=== PATIENT | male | born 1960 | race Caucasian/White ===

== ENCOUNTER → 2023-09-08 06:37 | Outpatient (REF) | payer OTHER, SELFPAY | LOC: RAD 06:37 | PROVIDERS: ATTENDING PHYSICIAN Specialist; FAMILY PHYSICIAN Internal Medicine | DX: N20.0 Calculus of kidney (principal) | CPT/HCPCS: 74176 ==

== ENCOUNTER → 2023-10-07 13:32 | Outpatient (REF) | payer OTHER, SELFPAY | LOC: RAD 13:32 | PROVIDERS: ATTENDING PHYSICIAN Specialist; FAMILY PHYSICIAN Internal Medicine | DX: N20.1 Calculus of ureter (principal) | CPT/HCPCS: 74018 ==

== ENCOUNTER 2023-10-20 06:11 | Day surgery (SDC) | payer OTHER, SELFPAY ==
[2023-10-09 07:45] VITALS: BMI 30.4
[2023-10-09 09:39] LABS: Hematocrit 46.8 % (39.0-52.0); Hemoglobin 16.2 g/dL (13.0-18.0); Mean Corp Hgb Conc. 34.6 g/dL (33.0-37.0); Mean Corpuscular Volume 89.7 fL (80.0-94.0); Mean Platelet Volume 10.5 fL (7.4-10.4); Platelet Count 166 10^3/uL (130-400); Red Blood Cell Count 5.22 10^6/uL (4.70-6.10); Red Cell Dist. Width 12.8 % (11.5-14.5); White Blood Cell Count 10.8 10^3/uL (4.8-10.8)
[2023-10-09 09:40] LABS: INR 1.04; PT 13.4 Sec (11.4-14.6)
[2023-10-09 09:41] LABS: APTT 38.7 Sec (23.4-35.0); Blood Urea Nitrogen 17 mg/dl (9-20); Calcium 9.9 mg/dl (8.4-10.2); Carbon Dioxide 26 mmol/L (22-30); Chloride 103 mmol/L (98-107); Estimated Creatinine Clearance 86 ml/min; Glucose 104 mg/dl (70-99); Sodium 138 mmol/L (135-145); eGFR > 60.00
[2023-10-09 09:47] LABS: Potassium 4.6 mmol/L (3.5-5.1)
--- NOTE | 2023-10-12 14:48 | PTCARENOTE ---
Abnormal EKG on 10/09/23. Dr. Bowie aware. No intervention needed.
[2023-10-20] VITALS (7 sets, daily range): BP systolic 115–147; BP diastolic 62–82; BMI 30.4
[2023-10-20] MEDS: NORMOSOL-R 1000 IV (06:37)
[2023-10-20] MEDS: Pyridium 200 MG PO (06:38)
[2023-10-20] MEDS: DILAUDID 0.25 MG IV (08:38)
[2023-10-24 11:11] LABS: Stone Analysis Mass 12 mg
== END 2023-10-20 09:30 | disposition home or self-care (01) ==
LOC: SDS 06:11
PROVIDERS: ATTENDING PHYSICIAN Specialist; FAMILY PHYSICIAN Internal Medicine
DX: N13.2 Hydronephrosis with renal and ureteral calculous obstruction (principal)
CPT/HCPCS: 52356; 36415; 74018; 76000; 80048; 82365; 85027; 85610; 85730; 93005; C1894; C2617

== ENCOUNTER → 2024-10-05 13:40 | Outpatient (REF) | payer MEDICARE, OTHER, SELFPAY | LOC: HWRAD 13:40 | PROVIDERS: ATTENDING PHYSICIAN Nurse Practitioner | DX: Z87.891 Personal history of nicotine dependence (principal) | CPT/HCPCS: 71271 ==

== ENCOUNTER → 2024-11-21 08:23 | Outpatient (REF) | payer MEDICARE, OTHER, SELFPAY | LOC: HWRAD 08:23 | PROVIDERS: ATTENDING PHYSICIAN Internal Medicine Critical Care Medicine; FAMILY PHYSICIAN Internal Medicine | DX: R91.1 Solitary pulmonary nodule (principal) | CPT/HCPCS: 71250 ==

== ENCOUNTER 2024-11-25 06:08 | Day surgery (SDC) | payer MEDICARE, OTHER, SELFPAY ==
[2024-11-21 13:53] VITALS: BMI 25.6
[2024-11-25 08:45] VITALS: BMI 29.2
[2024-11-25 08:48] VITALS: BP 136/80; BMI 29.2
[2024-11-25 11:20] VITALS: BP 116/48; BP 136/80
[2024-11-25 11:30] VITALS: BP 123/68
[2024-11-25 11:50] VITALS: BP 118/69
[2024-11-25 12:20] VITALS: BP 120/60
== END 2024-11-25 12:20 | disposition home or self-care (01) ==
LOC: GI 06:08
PROVIDERS: ATTENDING PHYSICIAN Internal Medicine Critical Care Medicine
DX: R91.1 Solitary pulmonary nodule (principal); R59.1 Generalized enlarged lymph nodes; C77.1 Secondary and unspecified malignant neoplasm of intrathoracic lymph nodes
CPT/HCPCS: 31629; 31624; 31627; 31654; 88172; 88173; 88305; 71045; 76000; 81459; 88112; 88177; 88342; 94640; C1887

== ENCOUNTER → 2024-12-08 11:53 | Outpatient (REF) | payer MEDICARE, OTHER, SELFPAY | LOC: MRI 11:53 | PROVIDERS: ATTENDING PHYSICIAN Internal Medicine Critical Care Medicine; FAMILY PHYSICIAN Internal Medicine | DX: C34.11 Malignant neoplasm of upper lobe, right bronchus or lung (principal) | CPT/HCPCS: 70553; A9575 ==

== ENCOUNTER → 2024-12-14 16:15 | Outpatient (REF) | payer MEDICARE, OTHER, SELFPAY ==
[2024-12-14 10:27] LABS: % Basophils 0.3 % (0-2); % Eosinophils 0.9 % (0-6); % Immature Granulocytes 0.1 % (0-0.5); % Lymphocytes 18.5 % (20.5-51.1); % Neutrophils 74.2 % (42.2-75.2); Absolute Eosinophils 0.1 10^3/uL (0-0.7); Absolute Lymphocytes 1.7 10^3/uL (1.2-3.4); Absolute Monocytes 0.5 10^3/uL (0.1-0.6); Absolute Neutrophils 6.6 10^3/uL (1.4-6.5); Hematocrit 44.8 % (39.0-52.0); Hemoglobin 15.6 g/dL (13.0-18.0); Mean Corp Hgb Conc. 34.8 g/dL (33.0-37.0); Mean Corpuscular Hgb 30.5 pg (27.0-31.0); Mean Corpuscular Volume 87.7 fL (80.0-94.0); Mean Platelet Volume 10.1 fL (7.4-10.4); Platelet Count 163 10^3/uL (130-400); Red Blood Cell Count 5.11 10^6/uL (4.70-6.10); Red Cell Dist. Width 12.5 % (11.5-14.5); White Blood Cell Count 8.9 10^3/uL (4.8-10.8)
[2024-12-14 11:16] LABS: ALT (SGPT) 21 U/L (0-50); AST (SGOT) 22 U/L (17-59); Albumin 4.3 g/dl (3.5-5.0); Alkaline Phosphatase 57 U/L (38-126); Blood Urea Nitrogen 15 mg/dl (9-20); Calcium 9.1 mg/dl (8.4-10.2); Carbon Dioxide 25 mmol/L (22-30); Chloride 111 mmol/L (98-107); Glucose 123 mg/dl (70-99); Potassium 4.3 mmol/L (3.5-5.1); Sodium 141 mmol/L (135-145); Total Bilirubin 0.5 mg/dl (0.2-1.3); Total Protein 6.8 g/dl (6.3-8.2); eGFR > 60.00
== END ==
LOC: OIDL 16:15
PROVIDERS: ATTENDING PHYSICIAN Internal Medicine Hematology & Oncology
DX: C34.91 Malignant neoplasm of unspecified part of right bronchus or lung (principal)
CPT/HCPCS: 80053; 85025

== ENCOUNTER → 2024-12-19 10:06 | Outpatient (REF) | payer MEDICARE, OTHER, SELFPAY ==
[2024-12-19 10:46] VITALS: BP 145/89; BP_SYST 68; BMI 29.4
[2024-12-19] MEDS: ANCEF 10 IV (11:00)
[2024-12-19 12:10] VITALS: BP 123/84
[2024-12-19 12:15] VITALS: BP 140/69
== END ==
LOC: RADI 10:06
PROVIDERS: ATTENDING PHYSICIAN Internal Medicine Hematology & Oncology; FAMILY PHYSICIAN Internal Medicine
DX: C34.91 Malignant neoplasm of unspecified part of right bronchus or lung (principal)
CPT/HCPCS: 36561; 76937; 77001; 99152; C1788

== ENCOUNTER → 2025-01-09 09:03 | Outpatient (REF) | payer MEDICARE, OTHER, SELFPAY ==
[2025-01-09 09:58] LABS: Hematocrit 42.2 % (39.0-52.0); Hemoglobin 14.3 g/dL (13.0-18.0); Mean Corp Hgb Conc. 33.9 g/dL (33.0-37.0); Mean Corpuscular Volume 90.8 fL (80.0-94.0); Nucleated Red Blood Cells % 0 % (-); Platelet Count 181 10^3/uL (130-400); Red Cell Dist. Width 13.8 % (11.5-14.5)
[2025-01-09 11:24] LABS: ALT (SGPT) 15 U/L (0-50); AST (SGOT) 16 U/L (17-59); Albumin 4.3 g/dl (3.5-5.0); Alkaline Phosphatase 87 U/L (38-126); Blood Urea Nitrogen 12 mg/dl (9-20); Calcium 9.5 mg/dl (8.4-10.2); Carbon Dioxide 28 mmol/L (22-30); Chloride 108 mmol/L (98-107); Glucose 86 mg/dl (70-99); Potassium 4.9 mmol/L (3.5-5.1); Sodium 141 mmol/L (135-145); Total Protein 6.9 g/dl (6.3-8.2); eGFR > 60.00
[2025-01-09 12:37] LABS: TSH 1.79 uIU/ml (0.47-4.68)
== END ==
LOC: REG 09:03
PROVIDERS: ATTENDING PHYSICIAN Internal Medicine Hematology & Oncology; FAMILY PHYSICIAN Internal Medicine
DX: C34.91 Malignant neoplasm of unspecified part of right bronchus or lung (principal); Z45.2 Encounter for adjustment and management of vascular access device; Z79.899 Other long term (current) drug therapy
CPT/HCPCS: 36415; 80053; 84443; 85025

== ENCOUNTER → 2025-01-30 09:42 | Outpatient (REF) | payer MEDICARE, OTHER, SELFPAY ==
[2025-01-30 10:49] LABS: Hematocrit 41.0 % (39.0-52.0); Hemoglobin 14.1 g/dL (13.0-18.0); Mean Corp Hgb Conc. 34.4 g/dL (33.0-37.0); Mean Corpuscular Volume 92.1 fL (80.0-94.0); Nucleated Red Blood Cells % 0 % (-); Platelet Count 133 10^3/uL (130-400); Red Cell Dist. Width 15.3 % (11.5-14.5)
[2025-01-30 11:44] LABS: ALT (SGPT) 29 U/L (0-50); AST (SGOT) 24 U/L (17-59); Albumin 4.4 g/dl (3.5-5.0); Alkaline Phosphatase 82 U/L (38-126); Blood Urea Nitrogen 14 mg/dl (9-20); Calcium 9.0 mg/dl (8.4-10.2); Carbon Dioxide 29 mmol/L (22-30); Chloride 106 mmol/L (98-107); Glucose 70 mg/dl (70-99); Potassium 4.5 mmol/L (3.5-5.1); Sodium 141 mmol/L (135-145); Total Protein 6.7 g/dl (6.3-8.2); eGFR > 60.00
[2025-01-30 11:48] LABS: TSH 2.16 uIU/ml (0.47-4.68)
== END ==
LOC: REG 09:42
PROVIDERS: ATTENDING PHYSICIAN Internal Medicine Hematology & Oncology; FAMILY PHYSICIAN Internal Medicine
DX: C34.91 Malignant neoplasm of unspecified part of right bronchus or lung (principal); Z45.2 Encounter for adjustment and management of vascular access device; Z79.899 Other long term (current) drug therapy
CPT/HCPCS: 36415; 80053; 84443; 85025

== ENCOUNTER → 2025-02-20 10:00 | Outpatient (REF) | payer MEDICARE, OTHER, SELFPAY ==
[2025-02-20 10:53] LABS: Hematocrit 40.4 % (39.0-52.0); Hemoglobin 13.8 g/dL (13.0-18.0); Mean Corp Hgb Conc. 34.2 g/dL (33.0-37.0); Mean Corpuscular Volume 94.4 fL (80.0-94.0); Nucleated Red Blood Cells % 0 % (-); Platelet Count 130 10^3/uL (130-400); Red Cell Dist. Width 17.2 % (11.5-14.5)
[2025-02-20 11:15] LABS: ALT (SGPT) 22 U/L (0-50); AST (SGOT) 20 U/L (17-59); Albumin 4.4 g/dl (3.5-5.0); Alkaline Phosphatase 82 U/L (38-126); Blood Urea Nitrogen 14 mg/dl (9-20); Calcium 9.4 mg/dl (8.4-10.2); Carbon Dioxide 26 mmol/L (22-30); Chloride 108 mmol/L (98-107); Glucose 88 mg/dl (70-99); Potassium 4.7 mmol/L (3.5-5.1); Sodium 140 mmol/L (135-145); Total Protein 7.0 g/dl (6.3-8.2); eGFR > 60.00
[2025-02-20 11:45] LABS: TSH 1.62 uIU/ml (0.47-4.68)
== END ==
LOC: REG 10:00
PROVIDERS: ATTENDING PHYSICIAN Internal Medicine Hematology & Oncology; FAMILY PHYSICIAN Internal Medicine
DX: C34.91 Malignant neoplasm of unspecified part of right bronchus or lung (principal); Z45.2 Encounter for adjustment and management of vascular access device; Z79.899 Other long term (current) drug therapy
CPT/HCPCS: 36415; 80053; 84443; 85025

== ENCOUNTER 2025-03-08 07:26 | Inpatient (IN) | payer MEDICARE, OTHER, SELFPAY ==
[2025-02-27 13:50] VITALS: BMI 29.9
--- NOTE | 2025-02-27 14:06 | CM ---
spoke to pt and in PAT's, we discussed pre-op Lung surgery including driving and lifting restrictions. he is prev indep, lives with his in a2 story home with 4 steps to enter. he has the lung surgery book, soap and in structions. he is
agreeable to a f/u visit form the ct transitional care nurse after dc. plan is for RUL lobectomy 03/08. cm role explained and all questions answered.
[2025-02-27 14:10] LABS: INR 1.04; PT 13.9 Sec (11.4-14.6)
[2025-02-27 14:35] LABS: Hematocrit 39.3 % (39.0-52.0); Hemoglobin 13.6 g/dL (13.0-18.0); Mean Corp Hgb Conc. 34.6 g/dL (33.0-37.0); Mean Corpuscular Volume 93.1 fL (80.0-94.0); Nucleated Red Blood Cells % 0 % (-); Platelet Count 104 10^3/uL (130-400); Red Cell Dist. Width 16.6 % (11.5-14.5)
[2025-02-27 14:39] LABS: Urine Character Clear (Clear)
[2025-02-27 14:55] LABS: Urine Squamous Cell 0-2 /LPF (Few)
[2025-02-27 14:58] LABS: Urine Red Blood Cell 0-2 /HPF (0-2)
[2025-02-27 15:06] LABS: ALT (SGPT) 20 U/L (0-50); AST (SGOT) 23 U/L (17-59); Albumin 4.5 g/dl (3.5-5.0); Alkaline Phosphatase 133 U/L (38-126); Blood Urea Nitrogen 20 mg/dl (9-20); Calcium 9.0 mg/dl (8.4-10.2); Carbon Dioxide 25 mmol/L (22-30); Chloride 105 mmol/L (98-107); Estimated Creatinine Clearance 103 ml/min; Glucose 76 mg/dl (70-99); Potassium 4.4 mmol/L (3.5-5.1); Sodium 137 mmol/L (135-145); Total Protein 6.8 g/dl (6.3-8.2); eGFR > 60.00
[2025-02-28 08:41] LABS: Glycohemoglobin (HgbA1c) 5.5 % (4.0-5.6)
[2025-03-08] VITALS (11 sets, daily range): BP systolic 97–152; BP diastolic 60–97
[2025-03-08] MEDS: BACTROBAN 2% OINTMENT 1 APPLIC NASAL (07:54)
--- NOTE | 2025-03-08 08:27 | W.CVOR.SURPR ---
CVOR Surgeon Immed Pre Op
-
I have examined this patient prior to performance of the scheduled procedure.
The patient's condition is unchanged from the time of the dictated/written History and
Physical and the patient is able to undergo the scheduled procedure.
RATS RUL + LN + Port removal
[2025-03-08] MEDS: XANAX 0.25 MG PO (08:30)
--- NOTE | 2025-03-08 08:36 | PTCARENOTE ---
Pt admitted into 2266, pt AAOx3 and ambulating in room; pt confirmed 2 showers at home; pt clipped and prepped and CHG wipes provided; pt confirmed all medications; all questions answered; Dr Aguirre into see pt and sign operative sites; pt resting
comfortably awaiting CVOR.
--- NOTE | 2025-03-08 11:34 | CM ---
Chart reviewed. Patient is in the OR today. Patient is independent of ADLS, lives with his in a 2 STH, 4 DELPHINE, 0 DME. Plan is for the patient to return home with CT Transitional RN.
--- NOTE | 2025-03-08 13:00 | PTCARENOTE ---
Pt transported to [facility] via bed.
[2025-03-08 13:03] LABS: Urine Character Clear (Clear)
--- NOTE | 2025-03-08 13:26 | CON.INTV ---
Consultation
Consultation Request
Date/Time Consultation Requested: 03/08/2025-3 PM
Date/Time Consultation Performed: 03/08/2025-3:30 PM
Requesting Provider: Dr. Aguirre
Performing Provider: Dr. Miller
Reason for Consultation: Postoperative critical care management
Medical History
-
Chief Complaint: Lung cancer
History of Present Illness:
65-year-old [id number]-yjes smoker with a history of insomnia and BPH found to have stage I lung cancer and underwent resection-biological scientist consulted for postoperative critical care management 03/08/2025. Patient was extubated postoperatively and is now
sitting in the chair. He denies any shortness of breath, chest pain, chest tightness, wheezing, chest congestion, productive cough and has some nicotine withdrawal symptoms. Does not complain of any abdominal pain, nausea, or focal weakness.
Past Medical History
Past Medical History: None (Former opszdu-28-wuut-year. Insomnia. BPH. TURP. Left ureteroscopic stone removal 2023. Lung cancer stage I/bronchoscopy 11/2024)
Social History
Tobacco: Smoker ([id number])
Alcohol: None
Drug: None
Personal:
Living: With Family
Occupational Exposures: No known asbestos exposure
Environmental Exposures: No known tuberculosis exposure
Family History
Family History: Reviewed & Not Pertinent (Father-CAD. Mother-lung cancer. Maternal grandfather-COPD.)
Allergies / Home Medications
Allergies
Allergy/AdvReac Type Severity Reaction Status Date / Time
No Known Allergies Allergy Verified 02/22/25 13:23
Home Medications
�Medication �Instructions �Recorded �Confirmed �Last Taken �Type
ascorbic acid (vitamin C) 500 mg 500 mg PO NOON Supplement 10/14/23 03/08/25 02/28/25 08:00 History
tablet (Vitamin C)
clonazepam 1 mg tablet 1 mg PO HS Mental Health/Anxiety 10/14/23 03/08/25 03/07/25 21:00 History
tamsulosin 0.4 mg capsule 0.4 mg PO DAILY Urinary Issue 10/14/23 03/08/25 03/07/25 08:00 History
trazodone 100 mg tablet 100 mg PO HS Sleep 10/14/23 02/22/25 11/24/24 22:15 History
acetaminophen 325 mg tablet 650 mg PO Q4H PRN pain 11/22/24 12/15/24 11/22/24 18:00 History
(Tylenol)
folic acid 1 mg tablet 1 mg PO DAILY Supplement 12/15/24 03/08/25 03/07/25 08:00 History
vcrewcpm-uw-dzrub 300 mcg-K 60 1 tab PO NOON Supplement 12/15/24 03/08/25 02/28/25 08:00 History
mcg-lycop 600 mcg-lutein 300 mcg
tablet (Centrum Silver Men)
Medical Marijuana 1 gum PO PRN PRN nausea 02/22/25 02/22/25 Unknown History
Review of Systems
-
Unable to Obtain full review of systems at this time due to: Other ( per HPI)
Vitals / Labs / Diagnostic Testing
Vital Signs
Temp Pulse Resp BP Pulse Ox
98.4 F 89 20 152/95 97
03/08/25 07:28 03/08/25 07:28 03/08/25 07:28 03/08/25 07:26 03/08/25 07:28
Lab Data
02/27/25 11:56
02/27/25 11:56
Diagnostic Testing:
Physical Exam
-
Exam:
Well-nourished and well-developed in no apparent distress
HEENT-atraumatic, normocephalic
Neck-supple, no JVD, no bruit
Heart-regular rate and rhythm-no murmurs, rubs or gallops
Chest-clear to auscultation, no wheezes, crackles
Back-no tenderness
Abdomen-soft, nontender, nondistended, no hepatosplenomegaly
Extremities-no cyanosis, clubbing, edema and good peripheral pulses
Integument-intact, no rashes, lesions or ecchymosis
Neurology-alert and oriented, nonfocal motor and sensory exam
Assessment
-
65-year-old 85-tgsu-ynlb smoker with a history of insomnia and BPH found to have stage I lung cancer and underwent resection-biological scientist consulted for postoperative critical care management 03/08/2025.
Lung cancer-stage III-right upper lobe adenocarcinoma with preoperative 4R lymph node positive
Status post preoperative chemoimmunotherapy-PET scan 02/2025 with positive response and no new additional lesions
Status post
Mild leukocytosis
Mild thrombocytopenia
Conditions present prior to admission:
Former ahjliz-67-dhmy-year.
COPD
Insomnia.
BPH.
TURP.
History of right sided pneumothorax-2007 after a fall with rib fractures
Left ureteroscopic stone removal 2023.
Lung cancer-adenocarcinoma right upper lobe with mets to local regional lymph nodes, negative MRI brain, status post preoperative chemo immunotherapy-11/2024
Family history lung cancer
Plan
Preoperative history and evaluation reviewed and summarized below including multiple radiographs, CTs of the chest, PET scans, pulmonary function tests and bronchoscopy results
Doing well postoperatively
Supplemental oxygen as needed
Nebulizers as needed
Aspiration precautions
Incentive spirometry
Monitor chest tube output-currently no airleak
Follow radiographs
Follow leukocytosis
Thoracic surgery following-correspondence reviewed
Ongoing smoking cessation counseling
Nicotine gum
DVT prophylaxis
Nutrition
Early mobilization
The patient is doing well and if chest tubes removed he may be discharged in the next 24 hours
The patient was last seen by Dr. Dimas 12/08/2024 and has an appointment 04/10/2025 at 9:45 AM
Critical care statement: A total of 55 minutes of critical care time was provided for this patient today. This includes management of unstable vital signs, evaluation of the patient at bedside, reviewing the patient�s pertinent medical records
including radiographs, microbiology, laboratory evaluations, and��discussion with primary team, consultants, pharmacy, nutrition, physical therapy, case management, charge nurse, critical care nursing, and respiratory therapy.
Diagnostic data:
CT chest 04/11/2015:Reviewed demonstrated stability of the 7 mm subpleural spiculated density on the posterior medial aspect of the left lung apex.� Stable 3 mm lingula pulmonary nodule and 2 mm nodule around the right major fissure.� No other new
abnormalities.
CT chest 06/09/2018:�demonstrated mild paraseptal and centrilobular emphysema. Upper lobe predominant. Several small pulmonary nodules-the largest area on the right apical mewsps-wamgikx-prbvn 7 mm lung nodule versus scarring. There are 3 mm a truck
pulmonary lymph nodes along the right major fissure. Questionable 5 mm nodule. 3 mm lingular nodule.
CT chest 10/15/22: multiple nodules throughout both lung wang ranging between 2 and 5 mm. Stable compared to 2021 per report
LDCT 10/05/24: 4 mm lingular nodule, 4 mm left upper lobe nodule. Right apical nodule 9 mm increased image #24, when compared to 10/15/22 per my review. No adenopathy. Mild emphysemaABD CT 09/08/23: nephrolithiasis
CT chest 11/21/24: 11 mm right upper lobe nodule, 4 mm lingular nodule, 1.5 cm right paratracheal adenopathy
PET scan 11/16/24: 9 mm right upper lobe nodule delayed SUV 4.7, right paratracheal lymph node 1.1 cm, SUV 14.1. per my review, there may also be some right hilar PET avidity.� No other extra pulmonary avidity noted
PET scan 03/02/2025 interval decrease in size of FDG avid right upper lobe pulmonary nodule and pretracheal lymph node consistent with positive response to therapy, no new suspicious FDG avid lesions in the body
Pulmonary function testing 07/13/2018:�showed FEV1 is/FVC 71%, FEV1 3.29 L-82%, FVC 4.63 L-88%. TLC 6.56 L-85%, RV 1.93 L-77%, DLCO 26.56-83%. Normal testing.
PFT 11/18/24: FVC 4.30/86%, FEV1 2.88/77%, ratio 67.� TLC 6.64/87%, DLCO 22.78/76%.� Mild obstruction with mild gas exchange defect
Bronchoscopy 11/25/24: right para-tracheal lymph node positive for cancer. right upper lobe lavage, negative for malignancy.� Lymph node station 4R, metastatic adenocarcinoma, moderate to poorly differentiated.� Station 11L negative
Data Reviewed
-
PFT: Report reviewed by me
EKG: Report reviewed by me
Radiology: Image personally visualized and interpreted and Report reviewed by me
CT Scan: Image personally visualized and interpreted and Report reviewed by me
MRI: Report reviewed by me
Medical Tests (Nuc Med, Echo etc): Report reviewed by me
Labs: Labs reviewed by me
Old Records: Reviewed
Critical Care Time (in minutes): 55
[2025-03-08 13:32] LABS: Urine Red Blood Cell 0-2 /HPF (0-2); Urine Squamous Cell 0-2 /LPF (Few)
--- NOTE | 2025-03-08 16:49 | W.PN.CT.SURG ---
CT Surgery Operative Note
-
THORACIC SURGERY OPERATIVE REPORT
Preoperative Diagnosis: Right upper lobe adenocarcinoma status post neoadjuvant chemoimmunotherapy for metastasis to station 4R lymph node
Postoperative Diagnosis: Same
Procedure(s) Performed:
1. Robotic assisted thoracic surgery [R ATS]
2. Intercostal nerve block interspaces 5, 6, 7, 8
3. Formal right upper lobectomy
4. Radical lymph node dissection
5. Port cath removal
Date of Surgery: 03/08/25
Comorbidities:
1. Adenocarcinoma of the right upper lobe with metastasis to station 4R lymph node
2. Status post neoadjuvant chemo immunotherapy
3. Tobacco abuse, active
4. Obese
5. Emphysema of bilateral lung wang and blebs
Attending Surgeon: Art Aguirre MD, MS
Assistants: Kimmie Urbina MD (performed portions of the RUL resection and performed the port-cath removal), Marian Sarabia PA-C (present and necessary to executive staff assistant, exchanging robotic instruments, retraction, suction, exposure, suture management, and
wound closure under my direction)
Anesthesiology: Jerzy Callejas MD and Melanie Sepulveda CRNA
Scrub and Circulating RNs: Ferny Viera, RN, Angel Rodriguez RN
Anesthesia: Dual Lumen GETA
EBL: 150 cc
Products: None
Indication(s) for Procedures: This is a 64-year-old male who had a low-dose CT scan screening for lung cancer and was found to have a right upper lobe nodule that was biopsied and came back positive for adenocarcinoma. EBUS evaluation also found a
abnormal appearing station 4R lymph node that came back positive for metastatic disease. He underwent a course of neoadjuvant chemoimmunotherapy and subsequent PET/CT demonstrated a good response. He is then referred for surgical resection and
staging.
Findings: There were no obvious intrathoracic lesions concerning for metachronous disease. He had evidence of significant smoking staining of all 3 lobes. There is evidence of blebs throughout his apical right upper lobe and other posterior
segments of his lung. He had a well-defined fissure between the right upper and right lower lobes but no distinct fissure between his right upper and right middle lobe. The lesion was palpable and visible at the apical posterior segment of his
right upper lobe. Once the hilum was dissected thoroughly and the fissure was developed along the pulmonary artery, the lateral as well as posterior ascending and truncal branches of the right upper lobe were taken using a white load stapler. The
vein to the right upper lobe was also divided. The fissure between the right upper and middle lobes was developed using multiple green load fire staplers. This left just his bronchus which was quite thick. We initially attempted to transect this
with a green load stapler but it was too thick. A black load stapler was used x 2 after verifying unobstructed inflation of the right middle and right lower lobes. At the conclusion of the case he had no significant air leak and no loss of tidal
volumes. We observed both his right middle and lower lobe expand with inflation at the inclusion of the case. Once this was complete the patient was flipped over and the anterior portion of his chest was prepped in a sterile fashion. This portion
the procedure was performed under local analgesia while he was still intubated, small 2 cm incision was made along the previous scar line and using blunt dissection the previous port was removed and pulled observing for any bleeding. The pocket was
fulgurated using electrocautery and the tissue was closed in layers per usual
Specimen(s):
Station 9, x 1 nodes
Station 8, x 2 nodes
Station 10, x 2 nodes
Station 11, x 2 nodes
Station 2/4, x 1 nodes
Right upper lobe
Description of Procedure: The patient was taken to the operating room. Induction via general anesthesia with endotracheal intubation was performed and peripheral venous access and arterial monitoring were inserted. Their identity and procedure to be
performed were verified and they were positioned with the right side up on the operating table. The patient was then prepped and draped in a sterile fashion. A preoperative time-out was performed with all members of the team present. A Veress
needle was used to insufflate the chest after isolating the lung. An 8 mm port was placed in the midaxillary line at approximately the eighth intercostal space and confirmed to be intrathoracic without significant pulmonary injury. The chest was
surveyed for any evidence of metastatic disease. Patient tolerate insufflation without complication. 2 additional 12 mm trocars were placed on either side under camera guidance and a third 8 mm trocar was placed along the back. A 12 mm technical support assistant
port was placed in the 11th intercostal space above the insertion of the diaphragm. An intercostal nerve block was performed at intercostal spaces 5 through 8.
The thoracic cavity was inspected for evidence of metastatic disease. None was observed. We started with mobilization of the inferior pulmonary ligament. We worked our way clockwise dissecting out the hilum and harvest any lymph nodes identified.
He had a poorly developed fissure between the right upper and right middle lobes. The vein leading to the right upper lobe was then divided using a white load stapler. This required extensive dissection and a pseudo fissure was developed using
multiple loads of green staple fires. This eventually opened up the hilum and expose the posterior sending and trunk branches of the pulmonary artery leading to the right upper lobe. These were divided using white load staplers. At this point the
only remaining structure was the bronchus to the right upper lobe which was quite long and also thick. We clamped this and performed a test inflation which demonstrated unobstructed flow to the remaining right lower right middle lobes. We
initially tried to fire with a green load but that was too thick and so we opted to switch out to multiple black loads. The specimen was displaced toward the apex while a chest tube was inserted and placed laterally towards the apex. A bubble test
was performed to identify any air leaks. CoSeal was used to reinforce the staple lines and hilum. The right upper lobe was then placed into a specimen bag and extracted from the chest cavity. After confirming hemostasis, the lung was fully
inflated and all ports were removed. Incisions were closed in 3 layers including the fascia, dermal, and epidermis. Additional local anesthesia was injected into all incision sites. The skin wound was cleansed and sealed with Dermabond glue. At
this point the patient was then repositioned into a supine position. The chest area around the port site was then prepped in the usual fashion. Once draping was completed, a small incision was made over top of the port site and the port was
bluntly removed and observe for any bleeding there. Fulguration of the wound bed was then performed and the wound was closed in layers per usual.
All instrument, sponge, and needle counts were confirmed to be correct x 2 at the end of the operation. The patient was transferred to the cardiac intensive care unit extubated in critical but stable condition.
I, Dr. Art Aguirre, was present, scrubbed for, and performed all critical elements of this procedure.
Art Aguirre MD, MS
Cardiothoracic Surgeon
[facility]
This operative dictation was created using the Jugo dictation system. Please excuse any grammatical, typographical, or 'sound alike' errors
[2025-03-08] MEDS: DILAUDID 0.5 MG IV ×3 (17:12→17:43)
[2025-03-08] MEDS: TORADOL 15 MG IV (18:11)
--- NOTE | 2025-03-08 18:35 | PTCARENOTE ---
Received pt from CVOR; CT x1 to water seal; NSR on monitor and VSS: A-line removed; pt resting comfortably in bed.
[2025-03-08] MEDS: SENOKOT PO (18:37)
[2025-03-08] MEDS: MIRALAX PO (18:37)
[2025-03-08] MEDS: ROXICODONE 5 MG PO (18:41)
[2025-03-08] MEDS: HEPARIN 5000 UNITS SC (18:41)
[2025-03-08] MEDS: NEURONTIN 100 MG PO (18:41)
[2025-03-08] MEDS: ANCEF 10 IV ×2 (18:45)
[2025-03-08] MEDS: FLEXERIL 5 MG PO (19:53)
[2025-03-08] MEDS: SENOKOT 8.6 MG PO (19:53)
--- NOTE | 2025-03-08 20:15 | PTCARENOTE ---
Assumed care of pt from dayshift RN. Walking rounds completed. Pt is AAOx3. [place]. SR on the tele monitor. HR 70s. BP stable. Palpable pulses throughout. Pt on 2 L NC. POX 97%. Pt s/p RATS procedure - right upper lobectomy, radical lymph node
dissection, and right upper chest port cath removal. Lung sounds diminished in B/L base. Right upper lobe absent. Pt w/ IS and acapella at the bedside. Deep breathing encouraged. Right pleural CTx1 to water seal. Tidaling present. Intermittent +1
airleak w/ coughing. Abdomen nontender. +BS x4. Pt OOB w/ assist x1 to void in the bathroom. Chemo precautions taken. Pt repositioned back into bed. PIV x2 intact. See MAR for pain medication administration. See worklist for full nursing assessment
and interventions. Call bragg within reach.
[2025-03-08] MEDS: KLONOPIN 1 MG PO (21:45)
[2025-03-08] MEDS: ANCEF 5 IV (21:45)
[2025-03-08] MEDS: TYLENOL 1000 MG PO (21:45)
[2025-03-08] MEDS: DESYREL 100 MG PO (21:45)
[2025-03-08] MEDS: NEURONTIN PO (21:46)
[2025-03-09] VITALS (7 sets, daily range): BP systolic 115–141; BP diastolic 64–96
[2025-03-09] MEDS: HEPARIN 5000 UNITS SC ×4 (00:19→23:17)
[2025-03-09] MEDS: TORADOL 15 MG IV ×3 (00:40→21:38)
--- NOTE | 2025-03-09 00:47 | PTCARENOTE ---
Pt reassessed. Pt remains SR on the tele monitor. HR 70s. BP stable. Pt on RA. POX 94-97%. Right CTx1 intact and to water seal. Tidaling present. No air-leak. All surgical sites stable. Pt OOB w/ assist x1 to void. Pt resting in bed at this time.
See MAR for pain medication administration. Call bragg within reach.
[2025-03-09] MEDS: FLEXERIL 5 MG PO (04:38)
--- NOTE | 2025-03-09 04:42 | PTCARENOTE ---
Pt reassessed. VSS. Pt on RA. Right lateral CT maintained to water seal. +1 intermittent air leak when pt coughs. PA aware. Pt assisted OOB to void then repositioned in bed. See MAR for pain medication administration. Labs drawn and sent. Call bragg
within reach.
[2025-03-09 04:53] LABS: Hematocrit 34.5 % (39.0-52.0); Hemoglobin 11.8 g/dL (13.0-18.0); Mean Corp Hgb Conc. 34.2 g/dL (33.0-37.0); Mean Corpuscular Volume 95.0 fL (80.0-94.0); Platelet Count 101 10^3/uL (130-400); Red Cell Dist. Width 17.2 % (11.5-14.5)
[2025-03-09 05:04] LABS: Blood Urea Nitrogen 14 mg/dl (9-20); Calcium 8.5 mg/dl (8.4-10.2); Carbon Dioxide 28 mmol/L (22-30); Chloride 105 mmol/L (98-107); Estimated Creatinine Clearance 82 ml/min; Glucose 145 mg/dl (70-99); Magnesium 2.0 mg/dl (1.6-2.3); Potassium 5.0 mmol/L (3.5-5.1); Sodium 137 mmol/L (135-145); eGFR > 60.00
[2025-03-09] MEDS: TYLENOL 1000 MG PO ×2 (05:32→22:03)
[2025-03-09] MEDS: ANCEF 5 IV ×2 (05:32→13:53)
--- NOTE | 2025-03-09 06:03 | W.PN.CT ---
Addendum entered and electronically signed by SHELBI Rivera 03/09/25 14:46:
CDI QUERY RESPONSE
-Acute blood loss anemia-expected due to surgery
Original Note:
Today's Communication / Plan
-
-pod #1
-no issues overnight, pOx 94-97% on RA. Ambulated to the bathroom, voided without issues
-R CT on water seal. +1 intermittent air leak noted with talking or cough. CT output 125/200 in 12/24 hrs
-follow CXR
-encourage IS, OOB, ambulate
Assessment / Plan
-
- s/p Robotic assisted thoracic surgery [RATS]; Formal right upper lobectomy; Port-cath removal; Radical lymph node dissection by Dr. Aguirre on 03/08/25, pod #1
- There were no obvious intrathoracic lesions concerning for metachronous disease. He had evidence of significant smoking staining of all 3 lobes. There is evidence of blebs throughout his apical right upper lobe and other posterior segments of
his lung.
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
- Tobacco abuse, active
- Class 1 obesity, BMI 30
- Emphysema of bilateral lung wang and blebs
Discussed patient care with: Nursing and Care Team
Subjective
-
Date of Service: March 09, 2025
Objective Data
-
PT 13.9 Sec (11.4-14.6) 02/27/25 11:56
INR 1.04 02/27/25 11:56
Vital Signs
Vital Signs
Temp Pulse Resp BP Pulse Ox
98 F 64 18 115/70 93
03/09/25 00:00 03/09/25 02:00 03/09/25 00:00 03/09/25 00:00 03/09/25 02:00
CT Intake/Output/Weight
03/08/25 03/08/25 03/09/25
06:59 18:59 06:59
Intake Total 125 / 125
Output Total 75 / 150 75 / 150
Balance 50 / -25 -75 / -25
SaO2: 93
Physical Exam
-
General: Awake and AOx3
Cardiovascular: Regular rate & rhythm, No Murmurs and No Rub
Respiratory: Rhonchi (on Right) and Decreased Breath Sounds
Incision: Clean, Dry and Dressing Intact
Extremities: No Edema (2+ DPs b/l.)
Abdomen: soft, nontender, nondistended, + bowel sounds
Data Reviewed
-
Lab Results: Results Reviewed
Medications: Active Meds Reviewed
Chest X-Ray: Report Reviewed and Image Reviewed
ECG: Report Reviewed and Image Reviewed
--- NOTE | 2025-03-09 07:16 | PTCARENOTE ---
CT clamped per CTNP request.
[2025-03-09] MEDS: FLOMAX PO (08:02)
[2025-03-09] MEDS: MIRALAX PO (08:03)
[2025-03-09] MEDS: LIDOCAINE 4% PATCH TOPICAL (08:03)
[2025-03-09] MEDS: SENOKOT PO (08:03)
[2025-03-09] MEDS: NEURONTIN 100 MG PO ×3 (08:04→22:03)
--- NOTE | 2025-03-09 08:44 | PTCARENOTE ---
Received pt from nightclub manager RN; pt AAOx3 and pt resting comfortably in chair and ambulating hallways; NSR on monitor and VSS; PIV x2 patent; lungs diminished; CT x1 clamped CRX at 1000; positive bowel sounds; pt voiding yellow urine; palpable
pulses throughout; no edema noted; all surgical sites C/D/I; see nursing documentation for further details.
[2025-03-09] MEDS: TYLENOL 650 MG PO (10:55)
--- NOTE | 2025-03-09 10:55 | W.PN.ANS.POP ---
Anesthesia Post Operative
- Anesthesia Post Op Note
Vital Signs Stable-See Nursing Note: Yes
Airway Patent: Yes
Adequate Pain Control: Yes
Change in Mental Status: No
Current Postoperative Nausea & Vomiting: No
Anesthesia Complications: No
General Anesthetic Recall: No
Unplanned Admission: No
Post Op Hydration Adequate: Yes
- -
Pt awake and alert, OOB to chair with no anesthesia related c/o at time of post op visit.
--- NOTE | 2025-03-09 11:20 | CM ---
Chart reviewed. Patient OOB sitting in the chair. Patient is independent of ADLS, lives with his in a 2 STH, 4 DELPHINE, 0 DME. Plan is for the patient to return home with CT Transitional RN. CM to follow
--- NOTE | 2025-03-09 11:39 | PTCARENOTE ---
CRX reviewed by LINDA and MD; CT unclamped and placed back to water seal; next CRX in am; NSR on monitor and VSS; assessment unchanged; pt and updated on plan for the day.
[2025-03-09] MEDS: MUCINEX 600 MG PO ×2 (13:53→19:39)
--- NOTE | 2025-03-09 14:32 | PN.CDI ---
CDI
- -
CDI:
Physician Documentation Request
Admit Date: 03/08/25 07:26
Dear Doctor Carla,
Please review the following and provide your response in the progress notes.
Clinical Indicators:
03/08 THORACIC SURGERY OPERATIVE REPORT
#Preoperative Diagnosis:
#...Right upper lobe adenocarcinoma
#...status post neoadjuvant chemoimmunotherapy
#...for metastasis to station 4R lymph node
#Procedure(s) Performed:
#1. Robotic assisted thoracic surgery [R ATS]
#2. Intercostal nerve block interspaces 5, 6, 7, 8
#3. Formal right upper lobectomy
#4. Radical lymph node dissection
#EBL: 150 cc
Laboratory Tests
02/27/25 03/09/25
11:56 04:18
Hgb 13.6 11.8 L
Hct 39.3 34.5 L
Based on the above and your clinical assessment, please clarify, the most likely condition/diagnosis evaluated, monitored and/or treated?
Acute blood loss anemia
Abnormal lab value, clinically insignificant
Other(specify)
Use of terms such as suspected, likely, concern for, or probable (associated with a specific diagnosis that is being evaluated, monitored, or treated as if it exists) are acceptable and can be coded in the inpatient setting, when documented at the
time of discharge.
Thank you,
Aan Leal RN BSN CCDS
CDI Specialist
Please contact via tiger text
Please use your independent medical judgment in providing your response.
[2025-03-09] MEDS: TYLENOL PO (15:45)
--- NOTE | 2025-03-09 16:50 | PTCARENOTE ---
Assessment unchanged; NSR on monitor and VSS; pt resting comfortably in chair.
[2025-03-09] MEDS: ROXICODONE 5 MG PO (19:18)
[2025-03-09] MEDS: REMOVE LIDOCAINE PATCH REMOVE (19:39)
[2025-03-09] MEDS: SENOKOT 8.6 MG PO (19:39)
--- NOTE | 2025-03-09 20:00 | PTCARENOTE ---
Report received from KARIN Allen. Walking rounds done. Pt awake, alert, oriented x 4. Sitting in chair. Speech clear. Moves all extremities equally x 4. Pt c/o 02/12 R-sided CP (ant/lat/post) to incision sites, CT site. Roxicodone 5 mg po given for
pain at 191. R lat CT to water seal, unclamped. Tidaling present. No air leak seen. Small amount crepitus present to base of R neck. Also seen on CXR today. Denies dyspnea. Trachea midline. BBS present. Decreased B bases. Sats on room air 96%.
Occasional moist, nonproductive cough. Mucinex given. CDB, IS encouraged. Some bloody drainage to CT sit. Pt refused CT site dressing change. Dressing reinforced for now. Audible heart tones. Pt in SR. Normotensive. For pulse and wound assessments,
see flowsheets. Belly soft, nontender. Normoactive bs x 4. Reports passing flatus. No BM yet. Voids clear, yellow urine in toilet ad beryl. On chemo, urine precautions. Son at bedside. Ongoing plan of care.
[2025-03-09] MEDS: DILAUDID 0.25 MG IV (22:02)
[2025-03-09] MEDS: KLONOPIN 1 MG PO (22:03)
--- NOTE | 2025-03-09 22:30 | PTCARENOTE ---
Pt attempted to get back in bed, c/o increased pain to R side chest 02/12. Toradol 15 mg IV given for pain. At 215, pt states pain is at same level. Toradol provided little relief. Discussed with YUE. Dilaudid 0.25 mg IV given at 220. Scheduled meds
given for pain, also given Klonopin as scheduled. Pt reports relief of pain. No c/o dyspnea. Ongoing plan of care.
[2025-03-09] MEDS: DESYREL 100 MG PO (23:16)
[2025-03-10 01:52] VITALS: BMI 30.2
--- NOTE | 2025-03-10 02:15 | PTCARENOTE ---
Pt awake, voided. Pt then weighed and helped back to bed. States he 'just wants to go back to sleep'.
--- NOTE | 2025-03-10 02:52 | W.PN.CT ---
Today's Communication / Plan
-
-pod #2
-no issues overnight, pOx 95% on RA.
-clamp trial on 03/09 with tiny R PTX and increased subcutaneous emphysema - CT changed back to water seal on 03/09
-R CT on water seal overnight. +1 intermittent air leak noted with cough only. CT output 90/190 in 12/24 hrs
-CXR this am with increased subcutaneous emphysema - put CT back to suction @ -10
-encourage IS, OOB, ambulate
Assessment / Plan
-
- s/p Robotic assisted thoracic surgery [RATS]; Formal right upper lobectomy; Port-cath removal; Radical lymph node dissection by Dr. Aguirre on 03/08/25, pod #2
- There were no obvious intrathoracic lesions concerning for metachronous disease. He had evidence of significant smoking staining of all 3 lobes. There is evidence of blebs throughout his apical right upper lobe and other posterior segments of
his lung.
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
- Tobacco abuse, active
- Class 1 obesity, BMI 30
- Emphysema of bilateral lung wang and blebs
Discussed patient care with: Nursing and Care Team
Subjective
-
Date of Service: March 10, 2025
Objective Data
-
Lab Results
03/09/25 04:18
PT 13.9 Sec (11.4-14.6) 02/27/25 11:56
INR 1.04 02/27/25 11:56
Vital Signs
Vital Signs
Temp Pulse Resp BP Pulse Ox
98.7 F 75 16 141/76 95
03/09/25 19:22 03/09/25 21:00 03/09/25 19:22 03/09/25 19:22 03/09/25 19:22
CT Intake/Output/Weight
09/10/2803/09/25 03/10/25
06:59 18:59 06:59
Intake Total 480 / 480
Output Total 125 / 200 100 / 150 50 / 150
Balance -125 / -75 380 / 330 -50 / 330
SaO2: 95
Physical Exam
-
General: Awake and AOx3
Cardiovascular: Regular rate & rhythm, No Murmurs and No Rub
Respiratory: Rhonchi (on Right) and Decreased Breath Sounds
Incision: Clean, Dry and Dressing Intact
Abdomen: soft, nontender, nondistended, + bowel sounds
Extremities: No Edema (2+ DPs b/l.)
Data Reviewed
-
Lab Results: Results Reviewed
Medications: Active Meds Reviewed
Chest X-Ray: Report Reviewed and Image Reviewed
ECG: Report Reviewed and Image Reviewed
[2025-03-10 05:11] VITALS: BP 133/77
[2025-03-10] MEDS: FLEXERIL 5 MG PO (05:24)
[2025-03-10] MEDS: TYLENOL 1000 MG PO ×3 (05:25→22:05)
--- NOTE | 2025-03-10 06:15 | PTCARENOTE ---
VS done. Labs drawn and sent. Pt to BR to void, then up to recliner chair. Flexeril 5 mg po at 0524. Refused CT dressing change for now. Refused CHG bath. States he prefers his to wash him.
[2025-03-10 06:24] VITALS: BMI 30.2
[2025-03-10 06:30] LABS: Hematocrit 32.3 % (39.0-52.0); Hemoglobin 11.2 g/dL (13.0-18.0); Mean Corp Hgb Conc. 34.7 g/dL (33.0-37.0); Mean Corpuscular Volume 96.7 fL (80.0-94.0); Platelet Count 89 10^3/uL (130-400); Red Cell Dist. Width 17.5 % (11.5-14.5)
[2025-03-10 06:35] LABS: Blood Urea Nitrogen 18 mg/dl (9-20); Calcium 8.6 mg/dl (8.4-10.2); Carbon Dioxide 28 mmol/L (22-30); Chloride 109 mmol/L (98-107); Estimated Creatinine Clearance 91 ml/min; Glucose 96 mg/dl (70-99); Potassium 4.3 mmol/L (3.5-5.1); Sodium 139 mmol/L (135-145); eGFR > 60.00
[2025-03-10 08:51] VITALS: BP 134/81
--- NOTE | 2025-03-10 09:00 | PTCARENOTE ---
assumed care of pt from previous shift RN, sinus rhythm on tele, + peripheral pulses, no edema. Lungs diminished, pox 97% on RA, achieved [address] w minimal drainage, + subcu air noted. CT dressing changed. Pt was medicated for pain. Plan of
care reviewed w the pt and his , questions encouraged.
[2025-03-10] MEDS: HEPARIN 5000 UNITS SC ×2 (09:03→16:12)
[2025-03-10] MEDS: MIRALAX 17 GRAMS PO (09:03)
[2025-03-10] MEDS: NEURONTIN 100 MG PO ×3 (09:06→22:05)
[2025-03-10] MEDS: SENOKOT 8.6 MG PO ×2 (09:06→19:59)
[2025-03-10] MEDS: MUCINEX 600 MG PO ×2 (09:06→19:59)
[2025-03-10] MEDS: FLOMAX 0.4 MG PO (09:06)
[2025-03-10] MEDS: LIDOCAINE 4% PATCH 1 PATCH TOPICAL (09:06)
[2025-03-10] MEDS: DILAUDID 0.25 MG IV ×3 (09:15→20:05)
[2025-03-10 12:16] VITALS: BP 135/81
[2025-03-10] MEDS: ROXICODONE 5 MG PO ×2 (13:07→17:12)
--- NOTE | 2025-03-10 13:29 | CM ---
Chart reviewed. Patient is OOB sitting in the chair. Patient is independent of ADLS, lives with his in a 2 [address], 4 [place], 0 DME. Plan is for the patient to return home with CT Transitional RN. CM to follow
[2025-03-10 16:08] VITALS: BP 130/68
--- NOTE | 2025-03-10 16:28 | PTCARENOTE ---
VSS, pt medicated for pain.
[2025-03-10 19:58] VITALS: BP 142/70
[2025-03-10] MEDS: REMOVE LIDOCAINE PATCH 1 PATCH REMOVE (19:59)
--- NOTE | 2025-03-10 20:00 | PTCARENOTE ---
Assumed care of the patient at 1900. Patient OOB to chair, AOx3. SR on CM, rates 70-80's, VSS, pulses palpable, heart tones audible, no edema. Inspiratory wheezing throughout lungs, intermittent productive cough, on RA; CT x1 in R lateral chest with
an intermittent air leak and crepitus noted, old drainage on the dressing. Hypoactive BS, passing flatus. Voiding without without difficulty in the bathroom. Surgical sites intact. POC discussed, patient uncooperative at times, indicates
understanding. Call bragg within reach, fall risk and drain management discussed, assessment of needs ongoing.
[2025-03-10] MEDS: KLONOPIN 1 MG PO (22:05)
[2025-03-10] MEDS: DESYREL 100 MG PO (22:05)
--- NOTE | 2025-03-11 | PTCARENOTE ---
No acute changes. VSS. Pain management. Patient sleeping between care.
[2025-03-11 00:04] VITALS: BP 119/53
[2025-03-11] MEDS: HEPARIN 5000 UNITS SC ×3 (00:08→16:25)
--- NOTE | 2025-03-11 04:15 | PTCARENOTE ---
VSS, patient ambulating to the bathroom without difficulty, VSS.
[2025-03-11 04:27] VITALS: BP 136/65
[2025-03-11] MEDS: TYLENOL 1000 MG PO ×3 (05:05→22:00)
[2025-03-11 07:02] VITALS: BP 146/78
--- NOTE | 2025-03-11 07:48 | W.PN.CT ---
Today's Communication / Plan
-
-pod #3
-no issues overnight, wants to go home
-R CT on -10 sxn since 03/10. No air leak noted with cough or breathing
-CXR with subcutaneous air - appears stable, no ptx on my review.
-
Assessment / Plan
-
- s/p Robotic assisted thoracic surgery [RATS]; Formal right upper lobectomy; Port-cath removal; Radical lymph node dissection by Dr. Aguirre on 03/08/25, pod #3
- There were no obvious intrathoracic lesions concerning for metachronous disease. He had evidence of significant smoking staining of all 3 lobes. There is evidence of blebs throughout his apical right upper lobe and other posterior segments of
his lung.
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
- Tobacco abuse, active
- Class 1 obesity, BMI 30
- Emphysema of bilateral lung wang and blebs
Discussed patient care with: Nursing and Care Team
Subjective
-
Date of Service: March 11, 2025
Objective Data
-
Lab Results
03/10/25 05:54
03/10/25 05:54
PT 13.9 Sec (11.4-14.6) 02/27/25 11:56
INR 1.04 02/27/25 11:56
Vital Signs
Vital Signs
Temp Pulse Resp BP Pulse Ox
98.1 F 70 18 136/65 95
03/11/25 04:28 03/11/25 04:27 03/11/25 04:28 03/11/25 04:27 03/11/25 04:28
CT Intake/Output/Weight
03/10/25 03/11/25 03/11/25
18:59 06:59 18:59
Intake Total 100 / 100
Output Total 120 / 265 145 / 265
Balance -20 / -165 -145 / -165
SaO2: 95
Physical Exam
-
General: Awake and AOx3
Cardiovascular: Regular rate & rhythm, No Murmurs and No Rub
Respiratory: Rhonchi (on Right) and Decreased Breath Sounds
Incision: Clean, Dry and Dressing Intact
Abdomen: soft, nontender, nondistended, + bowel sounds
Extremities: No Edema (2+ DPs b/l.)
Data Reviewed
-
Lab Results: Results Reviewed
Medications: Active Meds Reviewed
Chest X-Ray: Report Reviewed and Image Reviewed
ECG: Report Reviewed and Image Reviewed
[2025-03-11] MEDS: SENOKOT 8.6 MG PO ×2 (08:44→20:15)
[2025-03-11] MEDS: NEURONTIN 100 MG PO ×3 (08:44→22:00)
[2025-03-11] MEDS: MUCINEX 600 MG PO ×2 (08:45→20:15)
[2025-03-11] MEDS: FLOMAX PO (08:46)
[2025-03-11] MEDS: LIDOCAINE 4% PATCH 1 PATCH TOPICAL (08:47)
[2025-03-11] MEDS: MIRALAX PO (08:47)
--- NOTE | 2025-03-11 09:34 | PTCARENOTE ---
Pt AAOx3, Pt disgruntled and states he wants to leave, educated pt on why he is still here and plan of care for the day, pt seems agreeable, Per CT surgery put CT to water seal and place abdominal binder
[2025-03-11] MEDS: TORADOL 15 MG IV (12:07)
[2025-03-11 12:13] VITALS: BP 141/83
--- NOTE | 2025-03-11 12:45 | PTCARENOTE ---
Pt in better spirits, abdominal binder placed to help with crepitus, no new assessments at this time
[2025-03-11 15:33] VITALS: BP 130/71
--- NOTE | 2025-03-11 16:30 | PTCARENOTE ---
Pt pleasant in chair talking to his , pain uncontrol no new changes to his assessment at this time
[2025-03-11 20:15] VITALS: BP 141/86
[2025-03-11] MEDS: REMOVE LIDOCAINE PATCH 1 PATCH REMOVE (20:15)
[2025-03-11] MEDS: DILAUDID 0.25 MG IV (20:15)
--- NOTE | 2025-03-11 20:33 | PTCARENOTE ---
Resumed care of the patient at 1900. Patient AOX3, OOB to chair. SR rates 70-80's, pulses palpable throughout, no edema. Inspiratory wheezing much improved from previous assessment, patient endorses expectorating during the day, intermittent
productive cough, on RA; CT x1 in R lateral chest with an intermittent air leak and crepitus noted. Hypoactive BS, passing flatus, pt states two small BMs today; appetite good. Voiding without without difficulty. All surgical sites intact. Dilaudid
for 9/10 pain. POC discussed, patient in agreement, assessment of needs ongoing.
[2025-03-11] MEDS: DESYREL 100 MG PO (22:00)
[2025-03-11] MEDS: KLONOPIN 1 MG PO (22:01)
[2025-03-12] MEDS: HEPARIN 5000 UNITS SC ×2 (00:09→09:00)
[2025-03-12 00:11] VITALS: BP 126/72
[2025-03-12] MEDS: ROXICODONE 5 MG PO (00:13)
[2025-03-12 03:53] VITALS: BP 127/68
--- NOTE | 2025-03-12 04:00 | PTCARENOTE ---
No acute changes, VSS, patient sleeping between care. Pain management.
[2025-03-12] MEDS: TYLENOL 1000 MG PO (05:38)
--- NOTE | 2025-03-12 05:44 | W.PN.CT ---
Addendum entered and electronically signed by Art Aguirre MD 03/12/25 08:44:
I saw and examined the patient.
The PA's note was reviewed and I agree with the note.
Comment:
Pull drain and d/c, needs outpt CXR. Counseled about smoking, very likely to continue regardless.
Original Note:
Today's Communication / Plan
-
-pod #4
-no issues overnight, still anxious to get home
-CT to water seal, has binder on. 25/80 cc out in 12/24 hrs
-CXR / without obvious PTX
Assessment / Plan
-
- s/p Robotic assisted thoracic surgery [RATS]; Formal right upper lobectomy; Port-cath removal; Radical lymph node dissection by Dr. Aguirre on 03/08/25, pod #4
- There were no obvious intrathoracic lesions concerning for metachronous disease. He had evidence of significant smoking staining of all 3 lobes. There is evidence of blebs throughout his apical right upper lobe and other posterior segments of
his lung.
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
- Tobacco abuse, active
- Class 1 obesity, BMI 30
- Emphysema of bilateral lung wang and blebs
Subjective
-
Date of Service: March 12, 2025
Objective Data
-
Lab Results
03/10/25 05:54
03/10/25 05:54
PT 13.9 Sec (11.4-14.6) 02/27/25 11:56
INR 1.04 02/27/25 11:56
Vital Signs
Vital Signs
Temp Pulse Resp BP Pulse Ox
97.6 F 60 16 126/72 95
03/12/25 03:53 03/12/25 03:00 03/12/25 03:53 03/12/25 00:11 03/12/25 03:53
CT Intake/Output/Weight
03/11/25 03/11/25 03/12/25
06:59 18:59 06:59
Intake Total 720 / 770 50 / 770
Output Total 145 / 265 55 / 120 65 / 120
Balance -145 / -165 665 / 650 -15 / 650
SaO2: 95
Physical Exam
-
General: Awake, Oriented and AOx3
Cardiovascular: Regular rate & rhythm
Respiratory: Clear and Equal
Incision: Clean, Dry and Other (subbq air)
Data Reviewed
-
Lab Results: Results Reviewed
Medications: Active Meds Reviewed
Chest X-Ray: Report Reviewed and Image Reviewed
ECG: Report Reviewed
[2025-03-12 08:00] VITALS: BP 150/74
[2025-03-12 08:39] VITALS: BP 150/74
[2025-03-12] MEDS: FLOMAX PO (09:00)
[2025-03-12] MEDS: MUCINEX 600 MG PO (09:00)
[2025-03-12] MEDS: NEURONTIN 100 MG PO (09:00)
[2025-03-12] MEDS: LIDOCAINE 4% PATCH TOPICAL (09:00)
[2025-03-12] MEDS: SENOKOT PO (09:01)
[2025-03-12] MEDS: MIRALAX PO (09:01)
--- NOTE | 2025-03-12 09:22 | W.[place]-PDMP ---
[place]-PD[place]
-
Checked the [place]- Pres[place] Drug Monitoring Program website, no red flags identified; safe to proceed with prescription.
--- NOTE | 2025-03-12 09:23 | W.DCSUMMARY ---
Discharge Summary
Discharge Data
Date of Admission: 03/08/25
Date of Discharge: 03/12/25
-
Pending Results: No
Hospital Course
Primary care physician:
Son Urbina
Outpatient welt sewer:
Dr. Dimas
Outpatient Oncologist:
Dr. Petit
Procedures:
03/08/25:
1. Robotic assisted thoracic surgery [R ATS]
2. Intercostal nerve block interspaces 5, 6, 7, 8
3. Formal right upper lobectomy
4. Radical lymph node dissection
5. Port cath removal
Primary Diagnosis:
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
- Tobacco abuse, active
- Class 1 obesity, BMI 30
- Emphysema of bilateral lung wang and blebs
Secondary Diagnoses:
-same
-s/p right upper lobectomy
HPI: This is a 64-year-old male who had a low-dose CT scan screening for lung cancer and was found to have a right upper lobe nodule that was biopsied and came back positive for adenocarcinoma. EBUS evaluation also found a abnormal appearing
station 4R lymph node that came back positive for metastatic disease. He underwent a course of neoadjuvant chemoimmunotherapy and subsequent PET/CT demonstrated a good response. He is then referred for surgical resection and staging.
Hospital course:
03/08 POD #0: H20 seal. Brewer out in PACU. Cheri out
03/09 POD #1: clamp CT>repeat CXR @ 1000: more SC air, ?tiny R PTX. Back on H2O seal
03/10 POD #2: �AM CXR increased SC air>-10cm suction. Repeat CXR improved. Pt was taking seld off suction to walk-scolded
03/11 POD #3: No airleak, subq emphysema stable. Placed thoracic binder and placed CT to waterseal.� CXR stable thereafter.
03/12 POD #4: CXR stable. No airleak. CT removed. No issues with removal. Patient discharged to home.� No CXR postpull per Dr. Aguirre.
Home medication changes:
Continue:
ascorbic acid (vitamin C) 500 mg tablet (Vitamin C) 500 mg PO NOON Supplement 10/14/23
clonazepam 1 mg tablet 1 mg PO HS Mental Health/Anxiety 10/14/23
tamsulosin 0.4 mg capsule 0.4 mg PO DAILY Urinary Issue 10/14/23
trazodone 100 mg tablet 100 mg PO HS Sleep 10/14/23
acetaminophen 325 mg tablet (Tylenol) 650 mg PO Q4H PRN pain 11/22/24
folic acid 1 mg tablet 1 mg PO DAILY Supplement 12/15/24
[id number]-[id number] 300 mcg-K 60 mcg-lycop 600 mcg-lutein 300 mcg tablet (Centrum Silver Men) 1 tab PO NOON Supplement 12/15/24
Medical Marijuana 1 gum PO PRN PRN nausea 02/22/25
New:
albuterol sulfate 90 mcg/actuation aerosol inhaler 2 puff inhalation every 4 hours as needed for wheezing/shortness of breath
gabapentin 100 mg capsule 100 mg three times a day for 7 days
guaifenesin 600 mg tablet, extended release every 12 hours for 7 days
oxycodone 5 mg tablet take 0.5-1 tablet as needed for moderate to severe pain
Discharge Plan
-
Patient Disposition: Home (Routine Discharge)
Discharge Diagnosis/Procedures: RUL lobectomy + LN dissection, port removal (03/08/25)
Condition: Good
Diet: No restrictions
Activity: No strenuous activity
Driving Restrictions: Not until seen by your Dr
Bathing Restrictions: OK to Shower
Activity Restrictions/Additional Instructions:
STOP SMOKING
Referrals:
CT Transitional Care Nurse [Outside]
Referral Note: The Cardiothoracic Transitional Care Nurse will call you to set up a visit in 1-2 days.
Son Urbina MD [Family Provider, Internal Medicine]
Art Aguirre MD [Active, Cardiac Surgery] - 03/27/25 3:00 pm
Prescriptions:
New
gabapentin 100 mg Capsule
100 mg PO TID 7 Days Qty: 21 0RF
guaifenesin 600 mg Tablet Extended Release 12hr
600 mg PO Q12 7 Days Qty: 14 0RF
albuterol sulfate 90 mcg/actuation Hfa Aerosol Inhaler
2 puff inhalation R Q4HPRN PRN (Reason: wheezing/shortness of breath) Qty: 6.7 0RF
oxycodone 5 mg Tablet
See Rx Instructions .ROUTE .COMPLEX PRN (Reason: moderate to severe pain) Qty: 20 0RF
Rx Instructions:
Take 0.5 to 1 tab every 4 hours for moderate to severe pain.
Continued
clonazepam 1 mg Tablet
1 mg PO HS
ascorbic acid (vitamin C) [Vitamin C] 500 mg Tablet
500 mg PO NOON
tamsulosin 0.4 mg Capsule
0.4 mg PO DAILY
trazodone 100 mg Tablet
100 mg PO HS
acetaminophen [Tylenol] 325 mg Tablet
650 mg PO Q4H PRN (Reason: pain)
folic acid 1 mg Tablet
1 mg PO DAILY
Centrum Silver Men 130-32-126-300 mcg Tablet
1 tab PO NOON
Medical Marijuana
1 gum PO PRN PRN (Reason: nausea)
Discharge Orders:
Discharge Patient (As Directed); Ordered 03/12/25
Ordered By: Michael Caceres
Care Plan Goals
Care Plan Goals:
Problem: Readiness for enhanced knowledge related to diagnosis and treatment plan
Goal: Understand your diagnosis and treatment plan needs, including medications if applicable.
Instructions: Know your diagnosis, underlying causes and treatment plan options, including medications if applicable. Consult with your health care team to learn about your diagnosis and treatment plan, including medications if applicable.
Discharge Date and Time
Discharge Date/Time: 03/12/25 10:30
Print Language: HUNGARIAN
--- NOTE | 2025-03-12 10:39 | PTCARENOTE ---
Patient care assumed from nightshift RN. Fully alert and oriented. Patient OOB in chair, denies pain. Pleural chest tube discontinued by P.A. Dressed with Vaseline gauze and sterile gauze. Vital signs stable. Pulses palpable in upper and lower
extremities. Bowel sounds active, patient had bowel movement this morning. Voiding without difficulty. Ambulates independently. PIV X2 discontinued. Surgical sites all open to air, clean, dry, intact. Patient and thoroughly read discharge
instructions and verbalized clear understanding. Walked out to patient vehicle in wheelchair by RN. Discharged at 1030
== END 2025-03-12 10:30 | disposition home or self-care (01) | DRG 164 ==
LOC: CVICU 07:26
PROVIDERS: Nurse Practitioner; Physician Assistant Medical; ADMITTING PHYSICIAN Thoracic Surgery (Cardiothoracic Vascular Surgery); FAMILY PHYSICIAN Internal Medicine
PROC: 07T74ZZ Resection of Thorax Lymphatic, Percutaneous Endoscopic Approach (ICD-10-PCS; 2025-03-08)
PROC: 0BTC4ZZ Resection of Right Upper Lung Lobe, Percutaneous Endoscopic Approach (ICD-10-PCS; 2025-03-08)
PROC: 8E0W4CZ Robotic Assisted Procedure of Trunk Region, Percutaneous Endoscopic Approach (ICD-10-PCS; 2025-03-08)
DX: C34.11 Malignant neoplasm of upper lobe, right bronchus or lung (principal); C77.1 Secondary and unspecified malignant neoplasm of intrathoracic lymph nodes; D62 Acute posthemorrhagic anemia; F17.213 Nicotine dependence, cigarettes, with withdrawal; J43.9 Emphysema, unspecified; E66.811 Obesity, class 1; N40.0 Benign prostatic hyperplasia without lower urinary tract symptoms; G47.00 Insomnia, unspecified; D69.6 Thrombocytopenia, unspecified; Z68.30 Body mass index [BMI] 30.0-30.9, adult; Z79.899 Other long term (current) drug therapy; Z92.21 Personal history of antineoplastic chemotherapy; Z80.1 Family history of malignant neoplasm of trachea, bronchus and lung; Z82.5 Family history of asthma and other chronic lower respiratory diseases
CPT/HCPCS: 36415; 71045; 80048; 80053; 81003; 81015; 82248; 83036; 83735; 85025; 85027; 85610; 86850; 86900; 86901; 86920; 87070; 87086; 88305; 88309; 93005

== ENCOUNTER 2025-03-14 20:32 | Inpatient (IN) | payer MEDICARE, OTHER, SELFPAY ==
[2025-03-14] VITALS (13 sets, daily range): BP systolic 102–168; BP diastolic 65–145; BMI 26.5; BMI 29.9
--- NOTE | 2025-03-14 15:53 | ED.GENMED ---
History of Present Illness
General
Chief Complaint: Breathing Problem
Source: patient
Exam Limitations: none
Time Seen by Provider: 03/14/25 15:44
History of Present Illness
History of Present Illness:
See MDM
Past History
Past History
ED Past Medical History: Cancer and Other (Kidney stones trouble urinating)
ED Past Surgical History: Other (R lung lobectomy)
Social History
Tobacco: Non-smoker
Alcohol: None
Drug: None
Personal:
Living: with family
Employment: Employed
Phy Exam
Physical Exam
Physical Exam:
See MDM
Scores
Heart Failure Risk
Heart Failure Risk Score: Not Applicable
Course
Orders/Labs/Results
Orders:
Orders
03/14/25
CT Chest Tube Urgent
Reason For Exam: chest tube placement
03/14/25 Dinner
Regular
03/14/25 15:15
CR Chest - 2 Views Urgent
Comment: recent lobectomy
Reason For Exam: SOB, sudden onset swelling
03/14/25 15:50
Morphine Sulfate 4 mg IV NOW STA
03/14/25 16:01
Complete Blood Count/With Diff Urgent
Comprehensive Metabolic Panel Urgent
03/14/25 16:11
Consult Interventional Radiology [[facility]AD CONSULT] Urgent
Consulting Provider: Nagi Diop
Was physician already notified: Yes
Procedure being ordered, including laterality if applicable: R chest tube placement
Acknowledgement that appropriate orders are entered: Yes
03/14/25 16:22
Fentanyl Citrate/Pf [Sublimaze] 100 mcg .ROUTE .STK-MED ONE
Lorazepam [Ativan] 1 mg .ROUTE .STK-MED ONE
03/14/25 16:25
diazePAM [Valium Injection] 10 mg .ROUTE .STK-MED ONE
03/14/25 16:33
diazePAM [Valium Injection] 5 mg IV NOW STA
03/14/25 16:42
Fentanyl Citrate/Pf [Sublimaze] 100 mcg .ROUTE .STK-MED ONE
03/14/25 16:58
Admit Patient As Directed
Co-Sign Provider:
Level of Care: Inpatient admission
Assign to:: IVU
Physician / Group: Kimmie Urbina
Diagnosis: PTX
Reason for Hospitalization: recent RULobectomy, PTX
Expected length of stay greater than two midnights?: Yes
ELOS- Estimated Length of Stay in days: 4
I certify the patient meets the requirements for IP care: Yes
Code Status As Directed
Resuscitation Status: Full Code
Acetaminophen [Tylenol] 650 mg PO Q4HPRN PRN
Bisacodyl [Dulcolax] 10 mg RECTAL [id number] PRN
Docusate W/Senna [Senokot-S] 1 tablet PO BIDPRN PRN
HYDROmorphone [Dilaudid] 0.5 mg IV Q4HPRN PRN
Mag Hydrox/Al Hydrox/Simeth [Maalox] 30 ml PO Q6HPRN PRN
Ondansetron Injectable [Zofran] 4 mg IV Q6HPRN PRN
Oxycodone [Roxicodone] 5 mg PO Q4HPRN PRN
Polyethylene Glycol Powder [Miralax] 17 grams PO DAILYPRN PRN
Activity As Directed
Activity Level: Ambulate
As Tolerated
Vital Signs As Directed
Frequency: Per unit guidelines
Weight As Directed
Frequency: Once
PRN Pain Medication Management As Directed
May give lesser potent ordered pain med per pt: Yes
preference::
Protocol:: Medication orders for pain may be administered in a
manner that supports deferring to patient preference
when the pt is:
- Requesting an ordered lesser potent pain medication.
Least to most potent pain medications are defined
as: acetaminophen < NSAID < tramadol < opioids
(morphine, oxycodone, hydromorphone).
- Requesting a lesser dose of the same medication IF
ORDERED.
- Requesting a less intrusive route of administration
if both routes are prescribed by the provider (PO <
IV).
CR Chest Portable - 1 View Urgent
Comment: on arrival to IVU
Reason For Exam: PTX s/p chest tube
Reason Study Needs to be Portable: Unable to Transport
O2 Therapy [RESP] Routine
Titrate/Wean O2 to maintain O2 sat greater than (%): 92
Pulse Ox/spot Check [RESP] Routine
Quantity: 1
Rx Incentive Spirometry [RESP] Routine
Frequency: q1h while awake
03/14/25 16:59
DX Deep Vein Thrombosis Video Routine
03/14/25 17:17
Intake/ Output As Directed
Frequency: q12h
Comment: RECORD TUBE OUTPUT EVERY SHIFT
Surgical Procedure As Directed
Surgical Procedure: R chest tube
Vital Signs As Directed
Frequency: Other
Additional Instructions:: q15min x4, q30min x2, q1h x2 then routine if stable
03/14/25 17:18
Chest Tube As Directed
Location: anterior right chest
To suction: Yes
Suction to __ centimeters of water: -20
May ambulate with suction off?: No
Comment: RECORD OUTPUT FROM CHEST TUBE EVERY SHIFT
Resume Diet As Directed
Comment: resume diet prior to being NPO for IRAD procedure
Wound Care As Directed
Location of Wound: anterior right chest
Treatment of Wound: Change dressing q3days PRN. Clean round the tube with sterile gauze and sterile 0.9%
sodium chloride. Dress with drain sponge/ 4x4's and tape. Position tube so it does not
kink.
If tube falls out cover site with _tegaderm/gauze then call [facility] at ext [phone] between
[phone] Thursday-Thursday. Schedule replacement LEROY. Call hospital paper reel operator after hours
and weekends and ask for Interventional Radiologist bow maker production to be beeped.
Any questions please call [facility] at ext [phone]
03/14/25 17:27
Albuterol [ProAIR HFA INHALER] 2 puff INH R Q4HPRN PRN wheezing/shortness of breath
Guaifenesin [Mucinex] 600 mg PO Q12 PRN productive cough productive cough
03/14/25 22:00
Clonazepam [Klonopin] 1 mg PO HS
Gabapentin [Neurontin] 100 mg PO TID
Trazodone [Desyrel] 100 mg PO HS
03/15/25 00:00
Heparin 5,000 units SC Q8
03/15/25 06:00
Basic Metabolic Panel IN AM
Complete Blood Count/No Diff IN AM
CR Chest Portable - 1 View IN AM
Comment:
Reason For Exam: R PTX
Reason Study Needs to be Portable: Unable to Transport
03/15/25 08:00
FOLic ACID [Folvite] 1 mg PO DAILY
Famotidine [Pepcid] 20 mg PO DAILY
Tamsulosin [Flomax] 0.4 mg PO DAILY
03/15/25 12:00
Ascorbic Acid [Vitamin C] 500 mg PO NOON
03/16/25 06:00
CR Chest Portable - 1 View IN AM
Comment:
Reason For Exam: R PTX
Reason Study Needs to be Portable: Unable to Transport
03/17/25 06:00
CR Chest Portable - 1 View IN AM
Comment:
Reason For Exam: R PTX
Reason Study Needs to be Portable: Unable to Transport
03/18/25 06:00
CR Chest Portable - 1 View IN AM
Comment:
Reason For Exam: R PTX
Reason Study Needs to be Portable: Unable to Transport
03/19/25 06:00
CR Chest Portable - 1 View IN AM
Comment:
Reason For Exam: R PTX
Reason Study Needs to be Portable: Unable to Transport
03/20/25 06:00
CR Chest Portable - 1 View IN AM
Comment:
Reason For Exam: R PTX
Reason Study Needs to be Portable: Unable to Transport
03/21/25 06:00
CR Chest Portable - 1 View IN AM
Comment:
Reason For Exam: R PTX
Reason Study Needs to be Portable: Unable to Transport
Abnormal Lab Results
03/14/25
16:01
WBC 13.4 H 10^3/uL
(4.8-10.8)
RBC 3.79 L 10^6/uL
(4.70-6.10)
Hgb 12.7 L g/dL
(13.0-18.0)
Hct 36.6 L %
(39.0-52.0)
MCV 96.6 H fL
(80.0-94.0)
MCH 33.5 H pg
(27.0-31.0)
RDW 16.7 H %
(11.5-14.5)
Abs Immat Gran (auto) 0.1 H 10^3/uL
(0-0.05)
Absolute Neuts (auto) 11.3 H 10^3/uL
(1.4-6.5)
Absolute Monos (auto) 0.7 H 10^3/uL
(0.1-0.6)
Immature Gran % 0.8 H %
(0-0.5)
Neutrophils % 84.5 H %
(42.2-75.2)
Lymphocytes % 8.9 L %
(20.5-51.1)
Glucose 114 H mg/dl
(70-99)
03/14/25 16:01
03/14/25 16:01
Vital Signs
Initial and Last Documented VS:
Initial Vital Signs
Temp Pulse Resp BP Pulse Ox
98.3 F 107 20 153/97 96
03/14/25 15:12 03/14/25 15:12 03/14/25 15:12 03/14/25 15:12 03/14/25 15:12
Last Documented Vital Signs
Temp Pulse Resp BP Pulse Ox
98.7 F 102 19 146/87 100
03/14/25 16:24 03/14/25 16:24 03/14/25 16:24 03/14/25 16:24 03/14/25 16:24
MDM/Problems Addressed
Differential Diagnosis Includes:
Note:
CHIEF COMPLAINT(S)
Recurrent pneumothorax following recent lung resection.
HISTORY OF PRESENT ILLNESS
The patient is a 65-year-old male with a history of recent right upper lobe resection due to cancer last week. He presents with a recurrence of pneumothorax, which is causing subcutaneous emphysema. The pneumothorax recurrence occurred suddenly
while the patient was sitting on the couch, followed by a 20-minute symptom duration before realizing the issue. Previously, the patient remained hospitalized due to complications, with air leaks preventing immediate discharge. He was initially kept
until Thursday from a Thursday planned discharge to address these issues. He currently reports significant pain due to the subcutaneous air collection. He notes that pain started, particularly around the area where the surgery was performed.
The CT surgery team is being consulted for further management, possibly requiring input from the interventional radiology team to place another chest tube. Current pain management includes Gabapentin administration earlier in the day, and additional
pain medications are being considered. The possibility of using supplemental oxygen has also been mentioned, although the patient was not hypoxic upon presentation. The patient inquired about potential future interventions such as pleurodesis, which
was discussed as a possible step if the recurrence persists.
PAST MEDICAL AND SURGICAL HISTORY
Right upper lobe resection for lung cancer on February 22.
CHRONIC MEDICAL CONDITIONS SIGNIFICANTLY AFFECTING CARE
None specifically mentioned.
ALLERGIES
None reported.
PAST SURGICAL HISTORY
Right upper lobe resection.
MEDICATIONS
Gabapentin (time of last dose provided: 2:00 PM today).
REVIEW OF SYSTEMS
- Respiratory: Recurrent pneumothorax.
- Integumentary: Subcutaneous emphysema presenting with [employer] sign.
- Neurological: Cognitive status not directly stated, but coherence indicated.
PHYSICAL EXAM
General: Mildly uncomfortable
Skin: Warm, dry.
Head: Normocephalic, atraumatic
Neck: Appears supple, trachea midline.
Eyes, Ears, Nose, Mouth, and Throat: Oral mucosa moist.
Cardiovascular: No signs of cyanosis
Respiratory: decreased breath sounds to right lung field
Abdomen: Non-distended
Musculoskeletal: Subcu emphysema palpated to right neck and right arm
Neurological: No focal neurological deficit observed.
Psychiatric: Cooperative, appropriate mood and affect.
PROBLEM LIST
- Acute: Recurrent pneumothorax, Subcutaneous emphysema
- Chronic: None
PLAN
1. Consult CT surgery team regarding the recurrent pneumothorax, potential for interventional radiology consult for chest tube placement.
2. Pain management with consideration of additional medications as needed, beyond current Gabapentin.
3. Consideration of supplemental oxygen to maintain respiratory support.
4. Discussion of future potential interventions, including pleurodesis to prevent further lung collapse.
DIFFERENTIAL DIAGNOSIS
The Differential Diagnosis includes, in no particular order and is not limited to:
1. Post-surgical pneumothorax recurrence
2. Persistent air leak from previous surgery
3. Pleurodesis failure
4. Subcutaneous emphysema secondary to pneumothorax
5. Lung carcinoma recurrence causing structural compromise
6. Respiratory distress due to pneumothorax
7. Pain management response issue
8. Progressive lung disease
9. Complication from prior surgical intervention
10. Adhesions from previous lung surgeries leading to mechanical impedance
SUMMARY OF ENCOUNTER
A 65-year-old male presented to the emergency department with recurrent pneumothorax following a recent right upper lobe resection for lung cancer. The patient reported sudden onset of symptoms while sitting, along with pain related to subcutaneous
emphysema. The previous hospitalization was prolonged due to air leaks, delaying discharge. Current management includes pain control with gabapentin and consideration of supplemental oxygen to address pneumothorax symptoms.
MANAGEMENT OF THE PATIENTS CARE WAS DISCUSSED WITH
Case discussed with the cardiothoracic surgery team. They recommended interventional radiology for chest tube placement, and the CT surgery team agreed to admit the patient for chest tube maintenance and pain control.
PLAN
The plan includes consultation with the CT surgery team for patient admission, ongoing pain management, and monitoring of the pneumothorax with a potential interventional radiology consult for chest tube placement.
MEDICAL DECISION MAKING
-Complexity of Data Reviewed:
Chronic conditions affecting care include the post-operative status following right upper lobe resection for lung cancer.
-Data:
Category 1
My independent interpretation of the patients clinical presentation leads to suspicion of a recurrent pneumothorax.
Category 3
Discussion of management occurred with the cardiothoracic surgery team regarding patient admission and subsequent interventions.
DIAGNOSIS
Recurrent pneumothorax following right upper lobe resection - ICD-10 code: J93.9
Subcutaneous emphysema secondary to pneumothorax - ICD-10 code: J98.2
*Pulse Oximetry
SaO2: 96
Oxygen Mode of Delivery: Room air
Patient hypoxic: no
*Critical Care Note
Total Time (30-74mins, 75-104mins- exclusive of procedures): Not Applicable
ED Attending Note
-
Portions of this chart may have been created with voice recognition software.� Occasional wrong word or��sound alike� substitutions may have occurred due to the inherent limitations of voice recognition software.
Discharge Plan
Departure
Patient Disposition: Admit
Date of Disposition: 03/14/25
Time of Disposition: 16:12
Admit to: IMU
Presentation/result/management discussed w/ accepting MD/DO: Cardiothoracic Surgeon
Discharge Problem:
Pneumothorax, right
Prescriptions:
No Action
clonazepam 1 mg Tablet
1 mg PO HS
ascorbic acid (vitamin C) [Vitamin C] 500 mg Tablet
500 mg PO NOON
tamsulosin 0.4 mg Capsule
0.4 mg PO DAILY
trazodone 100 mg Tablet
100 mg PO HS
acetaminophen [Tylenol] 325 mg Tablet
650 mg PO Q4HPRN PRN (Reason: mild pain)
folic acid 1 mg Tablet
1 mg PO DAILY
Centrum Silver Men [phone] mcg Tablet
1 tab PO NOON
Medical Marijuana
1 gummy PO DAILYPRN PRN (Reason: nausea)
gabapentin 100 mg Capsule
100 mg PO TID 7 Days Qty: 21 0RF
Rx Instructions:
FOR 7 DAYS STARTING ON 03/12/25
guaifenesin 600 mg Tablet Extended Release 12hr
600 mg PO Q12 7 Days Qty: 14 0RF
albuterol sulfate 90 mcg/actuation Hfa Aerosol Inhaler
2 puff inhalation R Q4HPRN PRN (Reason: wheezing/shortness of breath) Qty: 6.7 0RF
oxycodone 5 mg Tablet
See Rx Instructions .ROUTE .COMPLEX PRN (Reason: moderate to severe pain) Qty: 20 0RF
Rx Instructions:
Take 0.5 to 1 tab every 4 hours for moderate to severe pain.
Interventions
Interventions:
*Risk Screen - Suicide Last Done: 03/14/25 15:12
*General Assessment Last Done: 03/14/25 15:12
Discharge Date and Time
Print Language: SETSWANA
[2025-03-14] MEDS: MORPHINE SULFATE 4 MG IV (15:56)
--- NOTE | 2025-03-14 16:34 | HPS.HSE ---
Family Physician
-
Family Physician: Son Urbina
Chief Complaint
-
SOB
History of Present Illness
Patient is a 65y/oM well known to our service who recently underwent a robotic assisted RUL lobectomy with radical lymph node dissection & port removal by Dr. Art Aguirre on 03/08/25 For adenocarcinoma of the right upper lobe now status neoadjuvant
chemotherapy. Postoperative course was uncomplicated and he was discharged home on 03/12 after chest tube removal. Pt called our answering service today with complaints of shortness of breath and increased Swelling around his right chest and right arm
And was told to return to the ED. Patient reports taking a short nap and waking up with the increased puffiness and change in his voice quality. Chest x-ray in the emergency department demonstrates a large right pneumothorax with associated
subcutaneous emphysema of his lateral chest right shoulder and right side of his neck.
Medical History
Past Medical History
Past Medical History: Reports Other
Additional Past Medical History:
Adenocarcinoma of right upper lobe, status post right upper lobectomy and radical lymph node dissection on 03/08/[address] Aguirre
Insomnia
Tobacco abuse, reports no cigarettes in 7 days
Past Surgical History: Reports Other
Additional Past Surgical History:
03/08/2025 right upper lobectomy with radical lymph node dissection and port removal
Social History
Tobacco: Smoker (reports no cigarettes x 7 days)
Alcohol: None
Drug: None
Family History
Family History: Not pertinent
Allergies / Home Medications
Allergies reflects when Allergies were last updated in [employer].
Home Medications with original date entered in [employer]
Allergy/Medication List:
Home Medications Table - record
�Medication �Instructions �Recorded �Confirmed
ascorbic acid (vitamin C) 500 mg 500 mg PO NOON Supplement 10/14/23 03/14/25
tablet (Vitamin C)
clonazepam 1 mg tablet 1 mg PO HS Mental Health/Anxiety 10/14/23 03/14/25
tamsulosin 0.4 mg capsule 0.4 mg PO DAILY Urinary Issue 10/14/23 03/14/25
trazodone 100 mg tablet 100 mg PO HS Sleep 10/14/23 03/14/25
acetaminophen 325 mg tablet 650 mg PO Q4HPRN PRN mild pain 11/22/24 03/14/25
(Tylenol)
folic acid 1 mg tablet 1 mg PO DAILY Supplement 12/15/24 03/14/25
hctwrgba-sm-taubc 300 mcg-K 60 1 tab PO NOON Supplement 12/15/24 03/14/25
mcg-lycop 600 mcg-lutein 300 mcg
tablet (Centrum Silver Men)
Medical Marijuana 1 gummy PO DAILYPRN PRN nausea 02/22/25 03/14/25
albuterol sulfate 90 mcg/actuation 2 puff inhalation R Q4HPRN PRN 03/12/25 03/14/25
aerosol inhaler wheezing/shortness of breath #6.7
grams
gabapentin 100 mg capsule 100 mg PO TID 7 days #21 caps 03/12/25 03/14/25
guaifenesin 600 mg tablet, 600 mg PO Q12 7 days #14 tabs 03/12/25 03/14/25
extended release 12 hr
oxycodone 5 mg tablet See Rx Instructions .Route 03/12/25 03/14/25
.COMPLEX PRN moderate to severe
pain #20 tabs
Review of Systems
-
History Source: Patient
A 12 point ROS was completed and negative except as noted: Yes
Constitutional: Denies Fever, Fatigue or Chills
EENT: Reports Other (change in voice quality); Denies Sore Throat
Respiratory: Reports Trouble Breathing
Cardiac: Denies Chest Pain, Palpitations or Syncope
Abdomen/GI: Reports No Symptoms
: Reports No Symptoms
Musculoskeletal: Reports No Symptoms
Skin: Reports No Symptoms
Neurological: Reports No Symptoms
Endocrine: Reports No Symptoms
Hematologic/Lymphatic: Reports No Symptoms
Psych: Reports No Symptoms
Physical Exam
Vital Signs
Vital Signs
Temp Pulse Resp BP Pulse Ox
98.7 F 102 19 146/87 100
03/14/25 16:24 03/14/25 16:24 03/14/25 16:24 03/14/25 16:24 03/14/25 16:24
Physical Exam
General: No Apparent Distress and Comfortable
Respiratory: Clear (left anterior wang clear) and Decreased Breath Sounds (left anterior wang diminished)
Cardiac: Regular Rhythm
Genito-urinary: Deferred by me
Skin: Warm and Dry
Neuro: Nonfocal/grossly intact
Psych: Calm
Laboratory Results
-
Lab Results
03/14/25 16:01
03/14/25 16:01
Data Reviewed
-
Diagnostic Radiology: Image Personally Visualized and interpreted and Discussed with Physician
CT Scan: Discussed with Physician
Lab Data: Labs Reviewed by me
Impression/Plan
-
IMPRESSION: large right pneumothorax s/p recent RULobectomy with associated subcutaneous emphysema
PLAN: Patient seen with Dr. Urbina in interventional radiology, he is having a CT-guided chest tube placed momentarily. We will admit to IVU with chest tube on -20 suction. Supportive care measures with chest binder if needed, pain medication.
Continue O2 supplementation to keep sats greater than 92%. Will use subcu heparin for DVT prophylaxis due to cancer diagnosis.
[2025-03-14] MEDS: VALIUM INJECTION 5 MG IV (16:37)
[2025-03-14 16:46] LABS: ALT (SGPT) 26 U/L (0-50); AST (SGOT) 27 U/L (17-59); Albumin 4.3 g/dl (3.5-5.0); Alkaline Phosphatase 75 U/L (38-126); Blood Urea Nitrogen 15 mg/dl (9-20); Calcium 9.5 mg/dl (8.4-10.2); Carbon Dioxide 28 mmol/L (22-30); Chloride 105 mmol/L (98-107); Glucose 114 mg/dl (70-99); Hematocrit 36.6 % (39.0-52.0); Hemoglobin 12.7 g/dL (13.0-18.0); Mean Corp Hgb Conc. 34.7 g/dL (33.0-37.0); Mean Corpuscular Volume 96.6 fL (80.0-94.0); Nucleated Red Blood Cells % 0 % (-); Platelet Count 147 10^3/uL (130-400); Potassium 4.3 mmol/L (3.5-5.1); Red Cell Dist. Width 16.7 % (11.5-14.5); Sodium 139 mmol/L (135-145); Total Protein 7.0 g/dl (6.3-8.2); eGFR > 60.00
[2025-03-14] MEDS: DILAUDID 0.5 MG IV (19:36)
[2025-03-14] MEDS: DESYREL 100 MG PO (22:35)
[2025-03-14] MEDS: KLONOPIN 1 MG PO (22:35)
[2025-03-14] MEDS: NEURONTIN 100 MG PO (22:35)
[2025-03-14] MEDS: TYLENOL 650 MG PO (22:35)
--- NOTE | 2025-03-14 22:48 | PTCARENOTE ---
Received patient from ED. ST on the monitor, HR in the 110s. Alert and oriented. R side chest tube -20 suction, sanguineous drainage. R arm crepitus, RUE limb restriction. R side/back with three incisions from previous surgery. 5 pain at old
chest tube site, PRN Tylenol administered. Oriented pt to room/unit. Call bragg within reach.
[2025-03-14] MEDS: HEPARIN SC (23:55)
[2025-03-15] VITALS (9 sets, daily range): BP systolic 91–133; BP diastolic 56–89; BMI 29.8
[2025-03-15 04:03] LABS: Hematocrit 34.3 % (39.0-52.0); Hemoglobin 12.0 g/dL (13.0-18.0); Mean Corp Hgb Conc. 35.0 g/dL (33.0-37.0); Mean Corpuscular Volume 94.0 fL (80.0-94.0); Platelet Count 142 10^3/uL (130-400); Red Cell Dist. Width 16.6 % (11.5-14.5)
[2025-03-15] MEDS: DILAUDID 0.5 MG IV ×3 (04:03→21:03)
[2025-03-15 04:31] LABS: Blood Urea Nitrogen 13 mg/dl (9-20); Calcium 8.9 mg/dl (8.4-10.2); Carbon Dioxide 27 mmol/L (22-30); Chloride 107 mmol/L (98-107); Estimated Creatinine Clearance 91 ml/min; Glucose 119 mg/dl (70-99); Potassium 4.8 mmol/L (3.5-5.1); Sodium 136 mmol/L (135-145); eGFR > 60.00
[2025-03-15] MEDS: TYLENOL 650 MG PO ×3 (06:05→19:30)
--- NOTE | 2025-03-15 07:40 | W.PN.CT ---
Today's Communication / Plan
-
-R CT on -20 sxn. Last night had +1 intermittent air leak with expiration and cough. This morning- no air leak noted with breathing or cough
-keep on sxn
-CXR this am- no PTX, has large amount of subq emphysema, appears without change on my review. Follow Radiology report
-follow daily CXR
Assessment / Plan
-
-readmitted 03/14/25 for new massive R PTX and marked widespread subcutaneous emphysema- s/p placement of R CT by IR on 03/14
- s/p Robotic assisted thoracic surgery [RATS]; Formal right upper lobectomy; Port-cath removal; Radical lymph node dissection by Dr. Aguirre on 03/08/25, discharged on 03/12/25
- There were no obvious intrathoracic lesions concerning for metachronous disease. He had evidence of significant smoking staining of all 3 lobes. There is evidence of blebs throughout his apical right upper lobe and other posterior segments of
his lung.
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
- Tobacco abuse, active
- Class 1 obesity, BMI 30
- Emphysema of bilateral lung wang and blebs
Discussed patient care with: Nursing and Care Team
Subjective
-
Date of Service: March 15, 2025
Objective Data
-
Lab Results
03/15/25 03:51
03/15/25 03:51
Vital Signs
Vital Signs
Temp Pulse Resp BP Pulse Ox
98.3 F 102 18 122/68 97
03/15/25 06:55 03/15/25 07:15 03/15/25 06:55 03/15/25 06:59 03/15/25 07:15
CT Intake/Output/Weight
03/14/25 03/15/25 03/15/25
18:59 06:59 18:59
Output Total 400 / 400
Balance -400 / -400
SaO2: 97
Physical Exam
-
General: AOx3
Cardiovascular: Regular rate & rhythm, No Murmurs and No Rub
Respiratory: Wheeze (little expiratory wheeze b/l), Rhonchi (on R), Decreased Breath Sounds and Other (R arm, R chest wall and neck with subcutaneous emphysema)
Incision: Clean, Dry and Intact
Data Reviewed
-
Lab Results: Results Reviewed
Medications: Active Meds Reviewed
Chest X-Ray: Report Reviewed and Image Reviewed
ECG: Report Reviewed and Image Reviewed
[2025-03-15] MEDS: FOLVITE 1 MG PO (08:29)
[2025-03-15] MEDS: NEURONTIN 100 MG PO ×3 (08:29→22:50)
[2025-03-15] MEDS: FLOMAX 0.4 MG PO (08:30)
[2025-03-15] MEDS: PEPCID 20 MG PO (08:30)
[2025-03-15] MEDS: HEPARIN 5000 UNITS SC ×3 (08:33→22:54)
--- NOTE | 2025-03-15 09:27 | PTCARENOTE ---
Patient resting in bed this morning, received tylenol from prior shift and rates pain 3/10 presently. Does not want any narcotics for now and is trying to manage discomfort with tylenol. R anterior CT to -20cm wall suction, with air leak noted by CT
surgery APPROVER. Crepitus present from his right hand, throughout his arm, upper chest and right upper back. CT dressing is dry and intact, surgical wounds with glue and suture are open to air with edema and ecchymosis noted right flank and hip area.
Breath sounds coarse throughout with a scattered expiratory wheeze. Patient complaining of diaphoresis but afebrile. TT to respiratory for albuterol inhaler and ordered IS. in visiting, call bragg in reach.
--- NOTE | 2025-03-15 11:12 | CM ---
Chart reviewed. Patient is independent of ADLS, lives with his in a 2 [address], 4 [place], 0 DME. Plan is for the patient to return home with CT Transitional RN.
[2025-03-15] MEDS: VITAMIN C 500 MG PO (12:39)
--- NOTE | 2025-03-15 13:51 | PTCARENOTE ---
Patient ambulated down the mann with his off of CT wall suction after he was seen by Dr. Aguirre. Stated Dr. Aguirre told him he could take short walks off of suction. Went down to the lounge and returned and placed back to -20cm suction. Order
changed by CT surgery VETERINARY MEDICINE DOCTOR.
--- NOTE | 2025-03-15 19:26 | PTCARENOTE ---
Patient complained of pain at the CT site rated 7/10 and medicated with dilaudid 0.5mg IV at 1500 with complete relief. At 1725 the patient's came to the desk and stated he was having increased discomfort. Patient stated the pain started
suddenly above the R anterior CT site and across his upper abdomen. Described it as a pressure type pain, pulse ox 96% on RA, CT at -20cm suction, no air leak noted but while patient was speaking, increased drainage noted going through the CT tubing
and patient stated he was having some relief. TT to CT surgery STONEWORKING BELT SANDER, explained what patient was reporting and if she could come see the patient. Report to next shift, patient oob to the chair, rating pain 5/10- at the bedside.
[2025-03-15] MEDS: DESYREL 100 MG PO (22:50)
[2025-03-15] MEDS: KLONOPIN 1 MG PO (22:50)
--- NOTE | 2025-03-16 03:08 | PTCARENOTE ---
Assumed care of patient at change of shift. Pt AAOx3, CHEVAK w/ b/l hearing aids, and VSS. Tele monitor NSR, HR in the 90-100's. Ambulates self in room, denies any dizziness.
Patient c/o right sided chest pressure along w/ upper abdominal pressure. Pt reports the pain is a 5. He stated 'I'm going to tell you the pain is a 5 even if its really 120'. PRN pain medications administered during the night, see MAR for further
details. Right anterior CT on wall suction. No air leaks noted. Pt w/ crepitus in right shoulder to upper right back, and all throughout his right arm. RUE restriction maintained. Richard UTRNER made aware of 'pressure'. Instructed RN to obtain
EKG, which showed NSR & pulm disease pattern. Richard TURNER at bedside, no further orders obtained at this time. Call bragg in reach.
[2025-03-16 04:26] VITALS: BP 123/67
[2025-03-16 04:39] VITALS: BMI 29.8
--- NOTE | 2025-03-16 06:49 | W.PN.CT ---
Today's Communication / Plan
-
-looks and feels better overall. Voice is improving as subcut. emphysema is improving
-R CT on -20 sxn, put out 135/235 in 12/24 hrs. Last night had +1 intermittent air leak with expiration and cough. This morning- no air leak noted with breathing or cough
-CXR this am- no PTX, has large amount of subq emphysema, appears without change on my review. Follow Radiology report
-follow daily CXR
Assessment / Plan
-
-readmitted 03/14/25 for new massive R PTX and marked widespread subcutaneous emphysema- s/p placement of R CT by IR on 03/14
- s/p Robotic assisted thoracic surgery [RATS]; Formal right upper lobectomy; Port-cath removal; Radical lymph node dissection by Dr. Aguirre on 03/08/25, discharged on 03/12/25
- There were no obvious intrathoracic lesions concerning for metachronous disease. He had evidence of significant smoking staining of all 3 lobes. There is evidence of blebs throughout his apical right upper lobe and other posterior segments of
his lung.
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
- Tobacco abuse, active
- Class 1 obesity, BMI 30
- Emphysema of bilateral lung wang and blebs
Discussed patient care with: Nursing and Care Team
Subjective
-
Date of Service: March 16, 2025
Objective Data
-
Lab Results
03/15/25 03:51
03/15/25 03:51
Vital Signs
Vital Signs
Temp Pulse Resp BP Pulse Ox
98.1 F 98 18 123/67 94
03/16/25 04:00 03/16/25 05:00 03/16/25 04:00 03/16/25 04:26 03/16/25 04:00
CT Intake/Output/Weight
03/15/25 03/15/25 03/16/25
06:59 18:59 06:59
Intake Total 720 / 960 240 / 960
Output Total 400 / 400 100 / 235 135 / 235
Balance -400 / -400 620 / 725 105 / 725
SaO2: 94
Physical Exam
-
General: AOx3
Cardiovascular: Regular rate & rhythm, No Murmurs and No Rub
Respiratory: Rhonchi (on R), Decreased Breath Sounds and Other (R arm, R chest wall and neck with subcutaneous emphysema)
Incision: Clean, Dry and Intact
Data Reviewed
-
Lab Results: Results Reviewed
Medications: Active Meds Reviewed
Chest X-Ray: Report Reviewed and Image Reviewed
ECG: Report Reviewed and Image Reviewed
[2025-03-16] MEDS: TYLENOL 650 MG PO ×3 (07:21→15:28)
[2025-03-16] MEDS: NEURONTIN 100 MG PO ×3 (07:23→22:06)
[2025-03-16] MEDS: FLOMAX 0.4 MG PO (07:23)
[2025-03-16] MEDS: FOLVITE 1 MG PO (07:23)
[2025-03-16] MEDS: HEPARIN 5000 UNITS SC ×3 (07:24→23:22)
[2025-03-16] MEDS: PEPCID 20 MG PO (07:35)
[2025-03-16 07:56] VITALS: BP 123/79
[2025-03-16] MEDS: SENOKOT-S 1 TABLET PO (09:17)
--- NOTE | 2025-03-16 11:01 | CM ---
Chart reviewed. Patient is out of bed, sitting in the chair, at bedside. Patient with his chest tube to water seal waiting for a CXR. Patient is independent of ADLS, lives with his in a 2 STH, 4 DELPHINE, 0 DME. Plan is for the patient to
return home. CM to follow.
[2025-03-16] MEDS: VITAMIN C 500 MG PO (11:15)
[2025-03-16 11:48] VITALS: BP 122/75
[2025-03-16 15:54] VITALS: BP 98/77
[2025-03-16 19:34] VITALS: BP 115/73
--- NOTE | 2025-03-16 19:37 | PTCARENOTE ---
Pt received this am with the chest to to suction but then at 0815. CV REGISTERED SAFETY ENGINEER removed suctions and placed on water seal. PCXR completed at 1200 and remains off suction. Pt taking tylenol for pain with partial relief. OOB ambulated in the hallway and to
the lounge.
[2025-03-16] MEDS: DILAUDID 0.5 MG IV (20:12)
[2025-03-16] MEDS: KLONOPIN 1 MG PO (22:07)
[2025-03-16] MEDS: DESYREL 100 MG PO (22:07)
[2025-03-16 22:09] VITALS: BP 102/63
[2025-03-17] VITALS (8 sets, daily range): BP systolic 115–140; BP diastolic 58–115
--- NOTE | 2025-03-17 02:24 | PTCARENOTE ---
Assumed care at 1900. Patient alert and oriented x3.Right chest tube remains in place to water seal. Crepitus noted to right arm. Patient reports pain to chest tube site. Pain management plan reviewed with patient. Patient verbalized understanding.
Patient normal sinus rhythm on tele. VSS. Patient independent in room. Patient aware of plan of care. Call bragg and personal belongings within reach.
[2025-03-17] MEDS: TYLENOL 650 MG PO ×2 (05:05→14:10)
--- NOTE | 2025-03-17 08:04 | W.PN.CT ---
Today's Communication / Plan
-
-CT on water seal since 03/16. No air leak noted with either breathing or coughing.
-CXR this am appears with more subcutaneous emphysema, however, pt states feeling better overall
-will review with the team
Assessment / Plan
-
-readmitted 03/14/25 for new massive R PTX and marked widespread subcutaneous emphysema- s/p placement of R CT by IR on 03/14
- s/p Robotic assisted thoracic surgery [RATS]; Formal right upper lobectomy; Port-cath removal; Radical lymph node dissection by Dr. Aguirre on 03/08/25, discharged on 03/12/25
- There were no obvious intrathoracic lesions concerning for metachronous disease. He had evidence of significant smoking staining of all 3 lobes. There is evidence of blebs throughout his apical right upper lobe and other posterior segments of
his lung.
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
- Tobacco abuse, active
- Class 1 obesity, BMI 30
- Emphysema of bilateral lung wang and blebs
Discussed patient care with: Nursing and Care Team
Subjective
-
Date of Service: March 17, 2025
Objective Data
-
Lab Results
03/15/25 03:51
03/16/25 12:25
Vital Signs
Vital Signs
Temp Pulse Resp BP Pulse Ox
98.5 F 84 20 115/58 95
03/17/25 07:11 03/17/25 05:33 03/17/25 07:11 03/17/25 05:33 03/17/25 07:11
CT Intake/Output/Weight
03/16/25 03/17/25 03/17/25
18:59 06:59 18:59
Output Total 110 / 110
Balance -110 / -110
SaO2: 95
Physical Exam
-
General: Awake and AOx3
Cardiovascular: Regular rate & rhythm, No Murmurs and No Rub
Respiratory: Rhonchi (on R) and Decreased Breath Sounds
Incision: Clean, Dry and Intact
Data Reviewed
-
Lab Results: Results Reviewed
Medications: Active Meds Reviewed
Chest X-Ray: Report Reviewed and Image Reviewed
ECG: Report Reviewed and Image Reviewed
[2025-03-17] MEDS: HEPARIN 5000 UNITS SC ×3 (08:21→23:00)
[2025-03-17] MEDS: NEURONTIN 100 MG PO ×3 (08:22→21:56)
[2025-03-17] MEDS: FOLVITE 1 MG PO (08:22)
[2025-03-17] MEDS: FLOMAX 0.4 MG PO (08:22)
[2025-03-17] MEDS: PEPCID 20 MG PO (08:22)
--- NOTE | 2025-03-17 09:18 | PTCARENOTE ---
Addendum entered by Kelle Eller RN 03/17/25 09:51:
correction crepitus noted in right arm/neck area.
Original Note:
received patient this am, first thing patient said to me is please take CT out and let me go home. I TT CVPA planning division superintendent, surgeon will be over to see patient. monitor ,shows NSR, CT to water seal, dsg. D/I, no crepitus noted. CT draining straw like
fluid, lung field on R side coarse, on RA o2 sat 96%. at bedside.
[2025-03-17] MEDS: VITAMIN C 500 MG PO (11:31)
--- NOTE | 2025-03-17 11:42 | CM ---
Chart reviewed. Patient OOB sitting in the chair. Patient is independent of ADLS, lives with his in a 2 STH, 4 DELPHINE, 0 DME. Plan is for the patient to return home. CM to follow
--- NOTE | 2025-03-17 14:12 | PTCARENOTE ---
patient c/o right middle and lower back, Tylenol po given as ordered.
[2025-03-17] MEDS: DILAUDID 0.5 MG IV ×2 (15:40→19:59)
--- NOTE | 2025-03-17 15:43 | PTCARENOTE ---
patient c/o right CT site, Dilaudid IV given as ordered.
--- NOTE | 2025-03-17 17:39 | PTCARENOTE ---
patient pointed out that his right sided chest tube is coiling up, went to get Amber CVPA came over and uncoiled CT and I changed dressing at that time as ordered.
[2025-03-17] MEDS: KLONOPIN 1 MG PO (21:56)
[2025-03-17] MEDS: DESYREL 100 MG PO (21:56)
--- NOTE | 2025-03-17 23:58 | PTCARENOTE ---
Pt.'s chest tube draining small amount yellow fluid, no air leak present, some crepitus assessed in right arm/neck/ and upper back. Pulse ox high 90's on RA. Medicated for insertion site discomfort with Dilaudid with good results obtained. Pt. OOB
and ambulates independently frequently when awake. Currently sleeping.
[2025-03-18 04:11] VITALS: BP 124/63
--- NOTE | 2025-03-18 05:28 | W.PN.CT ---
Addendum entered and electronically signed by Jose Cline MD 03/18/25 09:53:
I saw and examined the patient.
The PA's note was reviewed and I agree with the note.
Comment:
Pt w/ 20-30% apical PTX w/ slight lateral component on CXR this AM - enlarged since yesterday
Place back to suction - F/U CXR 2 hours post transition
Encourage OOB/IS
Pt. may require apical CT w/ Heimlich valve on eventual D/C
Original Note:
Today's Communication / Plan
-
Plan:
-No major issues overnight
-CT on water seal since 03/16. No air leak noted
-I cannot appreciate a pneumothorax on cxr this AM, SQ emphysema looks decreased. F/U official report
-Will discuss CT to water seal another day vs clamping with repeat cxr
-OOB into chair/Ambulate
-Avoid NSAIDs for pain
-Encourage smoking cessation
Assessment / Plan
-
-readmitted 03/14/25 for new massive R PTX and marked widespread subcutaneous emphysema- s/p placement of R CT by IR on 03/14
- s/p Robotic assisted thoracic surgery [RATS]; Formal right upper lobectomy; Port-cath removal; Radical lymph node dissection by Dr. Aguirre on 03/08/25, discharged on 03/12/25
- There were no obvious intrathoracic lesions concerning for metachronous disease. He had evidence of significant smoking staining of all 3 lobes. There is evidence of blebs throughout his apical right upper lobe and other posterior segments of
his lung.
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
- Tobacco abuse, active
- Class 1 obesity, BMI 30
- Emphysema of bilateral lung wang and blebs
Discussed patient care with: Cardiology, Nursing, Respiratory Therapy, Pharmacy and Care Team
Subjective
-
Date of Service: March 18, 2025
No issues overnight. Anxious to go home
Objective Data
-
Lab Results
03/15/25 03:51
03/16/25 12:25
Vital Signs
Vital Signs
Temp Pulse Resp BP Pulse Ox
98.4 F 76 16 124/63 95
03/18/25 04:12 03/18/25 04:11 03/18/25 04:12 03/18/25 04:11 03/18/25 04:12
CT Intake/Output/Weight
03/17/25 03/17/25 03/18/25
06:59 18:59 06:59
Output Total 110 / 110 55 / 55
Balance -110 / -110 -55 / -55
SaO2: 95 (RA)
Physical Exam
-
General: Awake, Oriented and AOx3
Cardiovascular: Regular rate & rhythm
Respiratory: Decreased Breath Sounds (on right)
Sternum: Stable
Incision: Clean, Dry, Intact and Dressing Intact
Extremities: No Edema and Other (+crepitus on right chest, back, shoulder, neck)
Data Reviewed
-
Lab Results: Results Reviewed
Medications: Active Meds Reviewed
Chest X-Ray: Report Reviewed and Image Reviewed
CT Scan: Report Reviewed and Image Reviewed
ECG: Image Reviewed
[2025-03-18] MEDS: TYLENOL 650 MG PO (06:09)
[2025-03-18 07:31] VITALS: BP 98/76
[2025-03-18] MEDS: HEPARIN SC ×3 (08:40→23:14)
[2025-03-18] MEDS: NEURONTIN 100 MG PO ×3 (08:40→22:06)
[2025-03-18] MEDS: FLOMAX 0.4 MG PO (08:40)
[2025-03-18] MEDS: FOLVITE 1 MG PO (08:40)
[2025-03-18] MEDS: PEPCID 20 MG PO (08:40)
[2025-03-18] MEDS: DILAUDID 0.5 MG IV ×2 (11:04→15:20)
[2025-03-18 11:36] VITALS: BP 140/75
[2025-03-18] MEDS: VITAMIN C 500 MG PO (13:11)
[2025-03-18] MEDS: HEPARIN 5000 UNITS SC (13:20)
[2025-03-18 14:56] VITALS: BP 121/62
--- NOTE | 2025-03-18 16:01 | PTCARENOTE ---
Assessment stable as documented. Pt continues to c/o of pain from CT - medicated per MAR with relief. at bedside most of day. Pt and remain discouraged RE: hospitalization and complications. Dr Cline and myself have spent alot of time
providing information regarding plan of care. Offering support as well.
[2025-03-18] MEDS: ROXICODONE 5 MG PO ×2 (17:48→22:07)
[2025-03-18 19:57] VITALS: BP 119/85
[2025-03-18 22:05] VITALS: BP 112/65
[2025-03-18] MEDS: KLONOPIN 1 MG PO (22:07)
[2025-03-18] MEDS: DESYREL 100 MG PO (22:07)
--- NOTE | 2025-03-18 23:15 | PTCARENOTE ---
assumed care of patient at the change of shift. AAOx3. complaining of intermittent right middle/lower back pain. increased pain with inhalation. tender to touch. unchanged from day shift. Rt CT to suction. no air leaks noted. crepitus R arm, R
shoulder, R upper chest, R posterior back (scapula to below rib cage). Ed Jose CV PA aware and at bedside. Abdominal binder applied to chest per order. SR on tele 70s-80s. bp stable. patient states pain is 'always at a 5.' reviewed pain control
and importance. PRN oxy given, see mar. patient extremely eager to go home. comfort measures provided. educated patient to inform RN with any new changes overnight. ambulating independently. 96% on RA. IS encouraged.
[2025-03-19] VITALS (8 sets, daily range): BP systolic 79–132; BP diastolic 61–80
--- NOTE | 2025-03-19 05:11 | W.PN.CT ---
Addendum entered and electronically signed by Jose Cline MD 03/19/25 09:43:
I saw and examined the patient.
The PA's note was reviewed and I agree with the note.
Comment:
Pt w/ continue apical PTX s/p transition of CT back to suction. No significant air leak. D/W IR yesterday. Greatly appreciate their kind offer to reposition CT today.
It is likely that patient will require D/C w/ Heimlich valve w/ outpatient CT removal
Maintain on suction currently and post CT repositioning
D/C planning for potentially tomorrow
Original Note:
Today's Communication / Plan
-
Plan:
-No major issues overnight
-CT had been on water seal since 03/16. Placed back on suction yesterday 03/18. No air leak noted
-Right pneumothorax appears to have never completely resolved but hard to discern d/t SQ emphysema, it has improved compared to yesterday, was between posterior rt 4th and 5th rib yesterday but now between post. rt 3rd and 4th rib on my assessment,
may benefit from a new apical chest tube placement to assist with resolution of pneumothorax, SQ emphysema slightly improved to my eyes, abdominal binder placed to chest last night. F/u official report
-OOB into chair/Ambulate
-Avoid NSAIDs for pain
-Encourage smoking cessation
Assessment / Plan
-
-readmitted 03/14/25 for new massive R PTX and marked widespread subcutaneous emphysema- s/p placement of R CT by IR on 03/14
- s/p Robotic assisted thoracic surgery [RATS]; Formal right upper lobectomy; Port-cath removal; Radical lymph node dissection by Dr. Aguirre on 03/08/25, discharged on 03/12/25
- There were no obvious intrathoracic lesions concerning for metachronous disease. He had evidence of significant smoking staining of all 3 lobes. There is evidence of blebs throughout his apical right upper lobe and other posterior segments of
his lung.
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
- Tobacco abuse, active
- Class 1 obesity, BMI 30
- Emphysema of bilateral lung wang and blebs
Discussed patient care with: Cardiology, Nursing, Respiratory Therapy, Pharmacy and Care Team
Subjective
-
Date of Service: March 19, 2025
Pt c/o right lower back pain, likely from SQ emphysema
Objective Data
-
Lab Results
03/15/25 03:51
03/16/25 12:25
Vital Signs
Vital Signs
Temp Pulse Resp BP Pulse Ox
98.7 F 88 18 112/65 97
03/18/25 22:27 03/18/25 22:05 03/18/25 22:27 03/18/25 22:05 03/18/25 22:27
CT Intake/Output/Weight
03/18/25 03/18/25 03/19/25
06:59 18:59 06:59
Intake Total 400 / 400
Output Total 0 / 55 20 / 20
Balance 0 / -55 -20 / 380 400 / 380
SaO2: 97 (RA)
Physical Exam
-
General: Awake, Oriented and AOx3
Cardiovascular: Regular rate & rhythm
Respiratory: Decreased Breath Sounds (on right)
Incision: Clean, Dry and Intact
Extremities: Other (+crepitus @ right chest, right lower back, right shoulder and neck)
Data Reviewed
-
Lab Results: Results Reviewed
Medications: Active Meds Reviewed
Chest X-Ray: Report Reviewed and Image Reviewed
CT Scan: Report Reviewed and Image Reviewed
ECG: Report Reviewed and Image Reviewed
[2025-03-19] MEDS: PEPCID 20 MG PO (08:11)
[2025-03-19] MEDS: NEURONTIN 100 MG PO ×3 (08:11→21:59)
[2025-03-19] MEDS: FLOMAX 0.4 MG PO (08:11)
[2025-03-19] MEDS: TYLENOL 650 MG PO ×2 (08:11→20:04)
[2025-03-19] MEDS: FOLVITE 1 MG PO (08:11)
--- NOTE | 2025-03-19 10:08 | PTCARENOTE ---
pt sr on the monitor, hr in the 80s, vss. pt c/o 09/12 pain in back, tylenol given as ordered. pt found relief. pt educated on plan of care and pt verbalized understanding. call bragg within reach.
pt now off unit to IR. report called.
[2025-03-19] MEDS: HEPARIN SC ×2 (10:18→23:42)
--- NOTE | 2025-03-19 11:48 | W.PN.UPDATE ---
Update Note
Progress Note Update
CXR from this morning shows improved pneumothorax. Attempt was made to reposition chest tube to apex, however access to the pleural space was lost. Unable to see pleural line on fluoroscopy. CT was performed, which showed a very small pneumothorax,
too small for safe chest tube placement.
D/W patient. If pneumothorax is unchanged or smaller on tomorrow's cxr, probably will not need to place another tube. The patient understands that if PTX has increased in size, he will need to have another chest tube placed.
[2025-03-19] MEDS: VITAMIN C 500 MG PO (12:50)
[2025-03-19] MEDS: ROXICODONE 5 MG PO ×2 (15:43→21:59)
[2025-03-19] MEDS: HEPARIN 5000 UNITS SC (15:49)
--- NOTE | 2025-03-19 17:05 | PTCARENOTE ---
pt back from IR. No chest tube in place. Dressing is CDI. Pt offers no complaints a this time. pt ambulating in room and tolerating well. YUE Green at bedside to speak with pt and . Pt educated on plan of care and pt verbalized
understanding. call bragg within reach.
--- NOTE | 2025-03-19 21:06 | PTCARENOTE ---
assumed care of patient at the change of shift. resting in the chair. independent in the room. SR on tele- 70s-80s. bp stable. denies any sob. Right lower back pain-intermittent, stabbing at times. Tylenol given, see mar. Abdominal binder in place.
crepitus noted- right arm, right upper chest/into neck, right upper back into lower back- unchanged. on RA- 94%. patient is extremely eager to go home. understands the importance of getting better prior to discharge but 'martin been here long enough.'
comfort measures provided. call bragg within reach.
[2025-03-19] MEDS: KLONOPIN 1 MG PO (21:59)
[2025-03-19] MEDS: DESYREL 100 MG PO (21:59)
--- NOTE | 2025-03-20 06:24 | W.PN.CT ---
Today's Communication / Plan
-
Plan:
-No major issues overnight
-CT had been on water seal since 03/16. Placed back on suction 03/18. Plan was to adjust chest tube to right apex yesterday 03/19, but IR lost access to pleural space and aborted procedure as CT of chest showed improved small ptx
-CXR this AM shows slightly improved right pneumothorax to my eyes compared to cxr yesterday, SQ emphysema unchanged. F/u official report
-OOB into chair/Ambulate
-Avoid NSAIDs for pain
-Encourage smoking cessation
-Monitor another day without chest tube vs D/C home
Assessment / Plan
-
-readmitted 03/14/25 for new massive R PTX and marked widespread subcutaneous emphysema- s/p placement of R CT by IR on 03/14
- s/p Robotic assisted thoracic surgery [RATS]; Formal right upper lobectomy; Port-cath removal; Radical lymph node dissection by Dr. Aguirre on 03/08/25, discharged on 03/12/25
- There were no obvious intrathoracic lesions concerning for metachronous disease. He had evidence of significant smoking staining of all 3 lobes. There is evidence of blebs throughout his apical right upper lobe and other posterior segments of
his lung.
- Right pneumothorax
- Subcutaneous emphysema
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
- Tobacco abuse, active
- Class 1 obesity, BMI 30
- Emphysema of bilateral lung wang and blebs
Discussed patient care with: Cardiology, Nursing, Respiratory Therapy, Pharmacy and Care Team
Subjective
-
Date of Service: March 20, 2025
Pt offers no complaints, feels well. Denies SOB/CP. Wants to go home
Objective Data
-
Lab Results
03/15/25 03:51
03/16/25 12:25
Vital Signs
Vital Signs
Temp Pulse Resp BP Pulse Ox
98.1 F 76 18 103/62 95
03/19/25 22:01 03/19/25 22:00 03/19/25 22:01 03/19/25 21:59 03/19/25 22:01
CT Intake/Output/Weight
03/19/25 03/19/25 03/20/25
06:59 18:59 06:59
Intake Total 400 / 400 450 / 450
Output Total 170 / 190
Balance 230 / 210 450 / 450
SaO2: 95 (RA)
Physical Exam
-
General: Awake, Oriented and AOx3
Cardiovascular: Regular rate & rhythm, No Murmurs and No Gallop
Respiratory: Decreased Breath Sounds (on right)
Incision: Clean, Dry, Intact and Dressing Intact
Extremities: Other (+crepitus @ right chest, right lower back, shoulder, neck)
Data Reviewed
-
Lab Results: Results Reviewed
Medications: Active Meds Reviewed
Chest X-Ray: Report Reviewed and Image Reviewed
CT Scan: Report Reviewed and Image Reviewed
ECG: Report Reviewed and Image Reviewed
[2025-03-20] MEDS: FOLVITE 1 MG PO (08:07)
[2025-03-20] MEDS: HEPARIN 5000 UNITS SC (08:07)
[2025-03-20] MEDS: NEURONTIN 100 MG PO (08:07)
[2025-03-20] MEDS: PEPCID 20 MG PO (08:07)
[2025-03-20] MEDS: FLOMAX 0.4 MG PO (08:07)
--- NOTE | 2025-03-20 09:51 | CM ---
Reviewed chart. Met with and Mrs. Ball to review discharge plans. He states he is feeling well and maybe able to go home soon. He states prior to admission he resides with his spouse in a two story home with four steps to enter. He states
he has a full flight of steps to get to bedroom/full bathroom. He states he has a powder room on the first floor. He states prior to admission he was independent with ambulation and adls. He states he does not have any DME in the home. He states
he has a prescription plan. We reviewed [facility] with them.. At this time they are declining [facility]. He is scheduled to see CT Surgery on Thursday. Medical work-up in progress. The discharge plan is to return home with his spouse when
medically stable.
--- NOTE | 2025-03-20 10:03 | PTCARENOTE ---
d/c instructions read to pt and pt verbalized understanding. iv and tele removed. pt left via wheelchair w/ staff member. took belongings from room.
--- NOTE | 2025-03-20 10:14 | W.DCSUMMARY ---
Discharge Summary
Discharge Data
Date of Admission: 03/14/25
Date of Discharge: 03/20/25
-
Pending Results: No
Hospital Course
Primary care physician: Dr. Son Urbina
Outpatient supervisor rod placing: Dr. Dimas
Outpatient oncologist: Dr. Petit
Inpatient consultants: Interventional Radiology
Procedures:
1. Right Anterior Chest Tube by Interventional Radiology on 03/14/25
Primary Diagnosis:
1. Large Right Pneumothorax
Secondary Diagnoses:
1. 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 Aguirre
2. Insomnia
3. Tobacco misuse - current smoker
HPI: Mr. Son Ball is a 65-year-old male who presented on 03/14/25 for R shoulder swelling after a coughing episode at home. Patient was recently discharged to home on 03/12/25 following a RATs with RUL lobectomy, port removal and lymph node
dissection on 03/08/[address] Art Aguirre. Prior to ED arrival, patient was being seen by Transitional Care Nursing in which he reported right upper extremity swelling and back pain following an episode of coughing. Patient was instructed to head
to the ED in which he was found to have a large right-sided PTX.
Hospital course: Mr. Ball presented to ED on 03/14/25 following an episode of coughing with complaints of RUE swelling and back discomfort. Patient was found to have a large R PTX in which IR was consulted for chest tube placement. Physical
assessment revealed crepitus on RUE ascending towards neck with vocal changes. Following CT placement, PTX resolved with intermittent air leak in [facility] and subcutaneous air within right arm and chest. Chest tube support was gradually decreased
during hospitalization leading to H2O seal trial on 03/17/25. On 03/18/25, CXR showed increased R PTX with resolution after placing CT back to -20 cm H2O suction. IR was consulted for repositioning of CT. On 03/19/25, IR attempted to reposition CT in
which they were unsuccessful, subsequently leading to chest tube removal. CT Chest was obtained in with PTX was determined to be small and unchanged on repeated imaging. On 03/20/25, CXR showed consistent subcutaneous air with improvement of crepitus
of RUE. Patient reported improvement of crepitus with use of ABD binder overnight and improvement to prior vocal changes. Physical exam revealed crepitus within biceps of RUE and RUC. He was discharged home with plan to follow-up with Cardiac
Surgery office on 03/22/25 after obtaining a CXR. He was provided education on symptoms requiring medical attention, avoid harsh coughing, and continue use of ABD binder.
Home medication changes:
- See medication list provided below
Discharge Plan
-
Patient Disposition: Home (Routine Discharge)
Discharge Diagnosis/Procedures: recurrent pleural effusion
Condition: Good
Diet: No restrictions
Activity: No strenuous activity
Additional Activity: No heavy lifting.
Driving Restrictions: Not until seen by your Dr
Bathing Restrictions: OK to Shower
Others Tests: Obtain Chest-X Ray on 03/22/25 prior to appointment with SHEL[facility] Valle
Wound Care: Keep procedural sites open to air. Shower daily with soap and water. No lotion, creams, or powders on procedural sites.
Activity Restrictions/Additional Instructions:
- Continue to wear Abdominal Binder during the day/overnight
- Avoid harsh coughing
- Call the Cardiac Surgery office if you notice increased swelling in right arm, increased abdominal bloating, changes in voice
- Call 911 if you notice sudden onset of shortness of breath
Referrals:
Son Urbina MD [Family Provider, Internal Medicine]
Romana Cruz CRNP [Specified Professional Personl, Cardiac Surgery] - 03/22/25 2:00 pm
Referral Note: Please obtain Chest X-Ray prior to appointment
Prescriptions:
Continued
clonazepam 1 mg Tablet
1 mg PO HS
ascorbic acid (vitamin C) [Vitamin C] 500 mg Tablet
500 mg PO NOON
tamsulosin 0.4 mg Capsule
0.4 mg PO DAILY
trazodone 100 mg Tablet
100 mg PO HS
acetaminophen [Tylenol] 325 mg Tablet
650 mg PO Q4HPRN PRN (Reason: mild pain)
folic acid 1 mg Tablet
1 mg PO DAILY
Centrum Silver Men [phone] mcg Tablet
1 tab PO NOON
Medical Marijuana
1 gummy PO DAILYPRN PRN (Reason: nausea)
albuterol sulfate 90 mcg/actuation Hfa Aerosol Inhaler
2 puff inhalation R Q4HPRN PRN (Reason: wheezing/shortness of breath) Qty: 6.7 0RF
gabapentin 100 mg Capsule
100 mg PO TID 7 Days Qty: 21 0RF
Rx Instructions:
FOR 7 DAYS STARTING ON 03/12/25
guaifenesin 600 mg Tablet Extended Release 12hr
600 mg PO Q12 7 Days Qty: 14 0RF
Discontinued
oxycodone 5 mg Tablet
See Rx Instructions .ROUTE .COMPLEX PRN (Reason: moderate to severe pain) Qty: 20 0RF
Rx Instructions:
Take 0.5 to 1 tab every 4 hours for moderate to severe pain.
Discharge Orders:
Discharge Patient (As Directed); Ordered 03/20/25
Ordered By: Sonya Bridges
Care Plan Goals
Care Plan Goals:
Problem: Readiness for enhanced knowledge related to diagnosis and treatment plan
Goal: Understand your diagnosis and treatment plan needs, including medications if applicable.
Instructions: Know your diagnosis, underlying causes and treatment plan options, including medications if applicable. Consult with your health care team to learn about your diagnosis and treatment plan, including medications if applicable.
Discharge Date and Time
Discharge Date/Time: 03/20/25 10:06
Print Language: SETSWANA
== END 2025-03-20 10:06 | disposition home or self-care (01) | DRG 200 ==
LOC: IVU 20:32
PROVIDERS: Physician Assistant Medical; Radiology Diagnostic Radiology; ADMITTING PHYSICIAN Thoracic Surgery (Cardiothoracic Vascular Surgery); EMERGENCY PHYSICIAN Student in an Organized Health Care Education/Training Program; FAMILY PHYSICIAN Internal Medicine
PROC: 0W9930Z Drainage of Right Pleural Cavity with Drainage Device, Percutaneous Approach (ICD-10-PCS; 2025-03-14)
DX: J93.9 Pneumothorax, unspecified (principal); C34.11 Malignant neoplasm of upper lobe, right bronchus or lung; C77.1 Secondary and unspecified malignant neoplasm of intrathoracic lymph nodes; F17.200 Nicotine dependence, unspecified, uncomplicated; G47.00 Insomnia, unspecified; J93.82 Other air leak; E66.811 Obesity, class 1; T81.82XA Emphysema (subcutaneous) resulting from a procedure, initial encounter; Y83.8 Other surgical procedures as the cause of abnormal reaction of the patient, or of later complication, without mention of misadventure at the time of the procedure; Y92.9 Unspecified place or not applicable; Z68.30 Body mass index [BMI] 30.0-30.9, adult; Z90.2 Acquired absence of lung [part of]; Z87.442 Personal history of urinary calculi; Z92.21 Personal history of antineoplastic chemotherapy
CPT/HCPCS: 32557; 71045; 71046; 80048; 80053; 85025; 85027; 93005; 94640; 96374; 99152; 99153; 99285; C1769

== ENCOUNTER → 2025-03-22 12:32 | Outpatient (REF) | payer MEDICARE, OTHER, SELFPAY | LOC: RAD 12:32 | PROVIDERS: ATTENDING PHYSICIAN Thoracic Surgery (Cardiothoracic Vascular Surgery); FAMILY PHYSICIAN Internal Medicine | DX: Z98.890 Other specified postprocedural states (principal) | CPT/HCPCS: 71046 ==

== ENCOUNTER → 2025-04-17 10:01 | Outpatient (REF) | payer MEDICARE, OTHER, SELFPAY ==
[2025-04-17 11:37] LABS: Hematocrit 38.4 % (39.0-52.0); Hemoglobin 13.2 g/dL (13.0-18.0); Mean Corp Hgb Conc. 34.4 g/dL (33.0-37.0); Mean Corpuscular Volume 96.0 fL (80.0-94.0); Nucleated Red Blood Cells % 0 % (-); Platelet Count 126 10^3/uL (130-400); Red Cell Dist. Width 11.7 % (11.5-14.5)
[2025-04-17 11:57] LABS: ALT (SGPT) 22 U/L (0-50); AST (SGOT) 26 U/L (17-59); Albumin 4.2 g/dl (3.5-5.0); Alkaline Phosphatase 52 U/L (38-126); Blood Urea Nitrogen 13 mg/dl (9-20); Calcium 9.2 mg/dl (8.4-10.2); Carbon Dioxide 30 mmol/L (22-30); Chloride 106 mmol/L (98-107); Glucose 93 mg/dl (70-99); Potassium 4.9 mmol/L (3.5-5.1); Sodium 141 mmol/L (135-145); Total Protein 6.8 g/dl (6.3-8.2); eGFR > 60.00
== END ==
LOC: REG 10:01
PROVIDERS: ATTENDING PHYSICIAN Internal Medicine Hematology & Oncology; FAMILY PHYSICIAN Internal Medicine
DX: C34.91 Malignant neoplasm of unspecified part of right bronchus or lung (principal); Z45.2 Encounter for adjustment and management of vascular access device; Z79.899 Other long term (current) drug therapy
CPT/HCPCS: 36415; 80053; 84443; 85025

== ENCOUNTER → 2025-05-15 11:10 | Outpatient (REF) | payer MEDICARE, OTHER, SELFPAY ==
[2025-05-15 12:11] LABS: Hematocrit 43.7 % (39.0-52.0); Hemoglobin 15.0 g/dL (13.0-18.0); Mean Corp Hgb Conc. 34.3 g/dL (33.0-37.0); Mean Corpuscular Volume 89.2 fL (80.0-94.0); Nucleated Red Blood Cells % 0 % (-); Platelet Count 133 10^3/uL (130-400); Red Cell Dist. Width 11.0 % (11.5-14.5)
[2025-05-15 12:43] LABS: ALT (SGPT) 19 U/L (0-50); AST (SGOT) 23 U/L (17-59); Albumin 4.5 g/dl (3.5-5.0); Alkaline Phosphatase 53 U/L (38-126); Blood Urea Nitrogen 16 mg/dl (9-20); Calcium 9.4 mg/dl (8.4-10.2); Carbon Dioxide 28 mmol/L (22-30); Chloride 104 mmol/L (98-107); Glucose 94 mg/dl (70-99); Potassium 4.3 mmol/L (3.5-5.1); Sodium 139 mmol/L (135-145); Total Protein 7.2 g/dl (6.3-8.2); eGFR > 60.00
[2025-05-15 13:06] LABS: PSA, Total - Diagnostic 0.22 ng/ml (0.0-4.0)
== END ==
LOC: REG 11:10
PROVIDERS: ATTENDING PHYSICIAN Internal Medicine Hematology & Oncology; FAMILY PHYSICIAN Internal Medicine; OTHER PHYSICIAN Specialist
DX: C34.91 Malignant neoplasm of unspecified part of right bronchus or lung (principal); Z45.2 Encounter for adjustment and management of vascular access device; Z79.899 Other long term (current) drug therapy; R35.0 Frequency of micturition
CPT/HCPCS: 36415; 80053; 84153; 84443; 85025

== ENCOUNTER → 2025-06-12 10:20 | Outpatient (REF) | payer MEDICARE, OTHER, SELFPAY ==
[2025-06-12 10:47] LABS: Hematocrit 42.8 % (39.0-52.0); Hemoglobin 14.9 g/dL (13.0-18.0); Mean Corp Hgb Conc. 34.8 g/dL (33.0-37.0); Mean Corpuscular Volume 88.1 fL (80.0-94.0); Platelet Count 134 10^3/uL (130-400); Red Cell Dist. Width 11.3 % (11.5-14.5)
[2025-06-12 11:18] LABS: ALT (SGPT) 21 U/L (0-50); AST (SGOT) 24 U/L (17-59); Albumin 4.6 g/dl (3.5-5.0); Alkaline Phosphatase 63 U/L (38-126); Blood Urea Nitrogen 15 mg/dl (9-20); Calcium 9.2 mg/dl (8.4-10.2); Carbon Dioxide 30 mmol/L (22-30); Chloride 104 mmol/L (98-107); Glucose 97 mg/dl (70-99); Potassium 4.6 mmol/L (3.5-5.1); Sodium 138 mmol/L (135-145); Total Protein 7.6 g/dl (6.3-8.2); eGFR > 60.00
== END ==
LOC: OIDL 10:20
PROVIDERS: ATTENDING PHYSICIAN Internal Medicine Hematology & Oncology; FAMILY PHYSICIAN Internal Medicine
DX: C34.91 Malignant neoplasm of unspecified part of right bronchus or lung (principal); Z45.2 Encounter for adjustment and management of vascular access device; Z79.899 Other long term (current) drug therapy
CPT/HCPCS: 36415; 80053; 84443; 85025